=== PATIENT | female | born 1940 | race Hispanic/Latino ===

== ENCOUNTER → 2018-06-17 | Outpatient (CLI) | payer BC | LOC: MAMMO 09:38 | PROVIDERS: ATTEND Internal Medicine | DX: Z12.31 Encounter for screening mammogram for malignant neoplasm of breast (principal) | CPT/HCPCS: 77067 ==

== ENCOUNTER 2018-09-11 02:47 | Inpatient (IN) | payer MEDICARE ==
[~2018-09-11] VITALS: Ht 157.5 cm; Wt 79.1 kg
--- OUTSIDE RECORDS SUMMARY | 2018-09-11 02:51 | XMS REPORT | Summary of Care ---
Author Organization Unknown Address Unknown Phone Unavailable Encounter GRECIA Weaver(MONICA) [id number] Date(s): 09/03/14 - 09/03/14 [facility] [address] [place] [address]- Discharge Diagnosis: Fall Discharge Diagnosis: Multiple contusions Discharge Disposition: SERGEI Physician Attending: Pk Saucedo MD Vital Signs 1 2 3 Most recent to oldest [Reference Range]: 157.48 cm (09/03/14 9:51 AM) Height 98.1 DegF (09/03/14 9:51 AM) Temperature Oral [96.4-99.1 DegF] 104/57 mmHg (09/03/14 12:56 PM) 124/60 mmHg (09/03/14 11:00 AM) 150/74 mmHg *HI* (09/03/14 9:51 AM) Blood Pressure [90-140/60-90 mmHg] 15 BRMIN (09/03/14 11:00 AM) 20 BRMIN (09/03/14 9:51 AM) Respiratory Rate [14-20 BRMIN] 74 bpm (09/03/14 12:56 PM) 70 bpm (09/03/14 11:00 AM) 73 bpm (09/03/14 9:51 AM) Peripheral Pulse Rate [60-100 bpm] 85.909 kg (09/03/14 9:51 AM) Weight 34.64 m2 (09/03/14 9:51 AM) Body Mass Index Problem List Condition Effective Dates Status Health Status Informant Diabetes Resolved mellitus(Confirmed) High blood Resolved pressure(Confirmed) Allergies, Adverse Reactions, Alerts Substance Reaction Severity Status Food Eggs Active Vicodin Active Medications Flexeril 10 mg oral tablet 10 mg, PO, TID, PRN Muscle Spasm, # 30 tab, 0 Refill(s) Start Date: 09/03/14 Stop Date: 09/13/14 Status: Ordered morphine Sulfate 2 mg, Route: IVP, Drug form: INJ, ONCE, Dosing Weight 85.909, kg, Priority: STAT , Start date: 09/03/14 10:10:00, Stop date: 09/03/14 10:10:00 Start Date: 09/03/14 Stop Date: 09/03/14 Status: Completed Tylenol with Codeine #3 oral tablet 1 tab, PO, Q4H, PRN for pain, # 30 tab, 0 Refill(s) Start Date: 09/03/14 Status: Ordered Zofran 4 mg, Route: IVP, Drug form: INJ, ONCE, Dosing Weight 85.909, kg, Priority: STAT , Start date: 09/03/14 10:10:00, Stop date: 09/03/14 10:10:00 Start Date: 09/03/14 Stop Date: 09/03/14 Status: Completed Results No data available for this section Immunizations No data available for this section Procedures Procedure Date Related Diagnosis Body Site Bilateral tubal ligation Social History Social History Type Response Smoking Status Never smoker; Exposure to Tobacco Smoke None; Cigarette Smoking Last 365 Days No; Reg Smoking Cessation Counseling No Assessment and Plan No data available for this section
--- OUTSIDE RECORDS SUMMARY | 2018-09-11 02:51 | XMS REPORT | Summary of Care ---
Author Author [facility] Organization [facility] Address Unknown Phone Unavailable Encounter HQ Rhonda_yesenia(MONICA) [id number] Date(s): 07/17/16 - 07/17/16 [facility] [address] [place] [phone]- [phone] Discharge Disposition: Home or Self Care Attending Physician: Kyree Romeo MD Referring Physician: Kyree Romeo MD Vital Signs No data available for this section Problem List Condition Effective Dates Status Health Status Informant Diabetes Resolved mellitus(Confirmed) High blood Resolved pressure(Confirmed) Hypercholesteremia(C Resolved onfirmed) Neuropathy(Confirmed Active ) Allergies, Adverse Reactions, Alerts Substance Reaction Severity Status Food Eggs Active Vicodin Active Medications No data available for this section Results No data available for this section [...]
--- OUTSIDE RECORDS SUMMARY | 2018-09-11 02:51 | XMS REPORT | Summary of Care ---
Author Author [facility] Organization [facility] Address Unknown Phone Unavailable Encounter GRECIA Weaver(MONICA) [id number] Date(s): 07/09/16 - 07/09/16 [facility] [address] [place] [address]- Discharge Diagnosis: Closed traumatic nondisplaced fracture of proximal end of r ight tibia Discharge Disposition: Home or Self Care Attending Physician: Geoffrey Celis MD Vital Signs Most recent to 1 oldest [Reference Range]: Height 157.48 cm (07/09/16 4:18 PM) Temperature Oral 98.9 DegF [96.4-99.1 DegF] (07/09/16 4:18 PM) Blood Pressure 175/91 mmHg [90-140/60-90 mmHg] *HI* (07/09/16 4:18 PM) Respiratory Rate 16 BRMIN [14-20 BRMIN] (07/09/16 4:18 PM) Peripheral Pulse 86 bpm Rate [60-100 bpm] (07/09/16 4:18 PM) Weight 79.545 kg (07/09/16 4:18 PM) Body Mass Index 32.07 m2 (07/09/16 4:18 PM) Problem List Condition Effective Dates Status Health Status Informant Diabetes Resolved mellitus(Confirmed) High blood Resolved pressure(Confirmed) Hypercholesteremia(C Resolved onfirmed) Neuropathy(Confirmed Active ) Allergies, Adverse Reactions, Alerts Substance Reaction Severity Status Food Eggs Active Vicodin Active Medications morphine Sulfate 4 mg, Route: IVP, ONCE, Dosing Weight 79.545, kg, Priority: STAT, Start date: 17:49:00 SHELVING SUPERVISOR, Stop date: 07/09/16 17:49:00 SHELVING SUPERVISOR Start Date: 07/09/16 Stop Date: 07/09/16 Status: Completed morphine Sulfate 4 mg, Route: IVP, ONCE, Dosing Weight 79.545, kg, Priority: STAT, Start date: 16:30:00 SHELVING SUPERVISOR, Stop date: 07/09/16 16:30:00 SHELVING SUPERVISOR Start Date: 07/09/16 Stop Date: 07/09/16 Status: Completed morphine Sulfate 4 mg, Route: IVP, ONCE, Dosing Weight 79.545, kg, Priority: STAT, Start date: 19:57:00 SHELVING SUPERVISOR, Stop date: 07/09/16 19:57:00 SHELVING SUPERVISOR Start Date: 07/09/16 Stop Date: 07/09/16 Status: Completed tramadol 100 mg oral tablet, extended release 100 mg=1 tab, PO, Daily, # 30 tab, 0 Refill(s) Start Date: 07/09/16 Status: Ordered Tylenol with Codeine #3 oral tablet 1 - 2 tab, PO, Q4H, PRN Pain, X 4 day, # 36 tab, 0 Refill(s) Start Date: 07/09/16 Stop Date: 07/13/16 Status: Ordered WheelChair 1 ea, MISC, ONCALL, # 1 ea, 0 Refill(s) Start Date: 07/09/16 Status: Ordered Zofran 4 mg, Route: IVP, Drug form: INJ, ONCE, Dosing Weight 79.545, kg, Priority: STAT , Start date: 07/09/16 16:30:00 SHELVING SUPERVISOR, Stop date: 07/09/16 16:30:00 SHELVING SUPERVISOR Start Date: 07/09/16 Stop Date: 07/09/16 Status: Completed Results No data available for [...]
--- OUTSIDE RECORDS SUMMARY | 2018-09-11 02:51 | XMS REPORT | Continuity of Care Document ---
Author Author [facility] Organization Interface Address Unknown Phone Unavailable Problems Problem Status Onset Date Classification Date Reported Comments Source TIBIAL FX Active 10/07/2016 [facility] [place] GENERAL PAIN, VOMITING Active 10/05/2016 [facility] RIGHT TIBIAL PLATEAU FRACTURE Active 08/22/2016 [facility] RIGHT KNEE PAIN M25.561, DISPLACED BICON Active 07/14/2016 [facility] Discharge Diagnosis: Closed traumatic nondisplaced fracture of proximal end of right tibia 07/09/2016 07/12/2016 [facility] KNEE PAIN Active 07/09/2016 [facility] BREAST CANCERSELF REFERRED Active 03/28/2015 [facility] Discharge Diagnosis: Shortness of breath 01/16/2015 01/19/2015 [facility] Discharge Diagnosis: Weakness 01/16/2015 01/19/2015 [facility] Discharge Diagnosis: Vertigo 01/16/2015 01/19/2015 [facility] DIZZY Active 01/16/2015 [facility] Discharge Diagnosis: Accidental fall 12/20/2014 12/23/2014 [facility] Discharge Diagnosis: Dizziness 12/20/2014 12/23/2014 [facility] Discharge Diagnosis: Acute head injury 12/20/2014 12/23/2014 [facility] FALL, DIZZINESS Active 12/20/2014 [facility] Discharge Diagnosis: Fall 09/03/2014 09/05/2014 [facility] Discharge Diagnosis: Multiple contusions 09/03/2014 09/05/2014 [facility] FALL Active 09/03/2014 [facility] Diabetes mellitus Resolved Problem 03/01/2013 [facility] High blood pressure Resolved Problem 03/01/2013 [facility] Diabetes mellitus Resolved Problem 07/20/2016 [facility] High blood pressure Resolved Problem 07/20/2016 [facility] Hypercholesteremia Resolved Problem 07/20/2016 [facility] Diabetes mellitus Resolved Problem 11/16/2016 [facility] [place] Fracture Active Problem 11/16/2016 [facility] [place],[facility] JAMUL (<span ID="[id number]">Confirmed</span>) Resolved Problem 11/16/2016 [facility] High blood pressure Resolved Problem 11/16/2016 [facility] OAB (<span ID="[id number]">Confirmed</span>) Active Problem 11/16/2016 [facility] Hypercholesteremia Resolved Problem 11/16/2016 [facility] Cataract Active Problem 11/16/2016 [facility] Breast cancer in female<sup>1</sup> Resolved Problem 11/16/2016 left breast [facility] Neuropathy Active Problem 11/16/2016 [facility] Tremor of right hand. Active Problem 11/16/2016 [facility] TIA (<span ID="[id number]">Confirmed</span>) Resolved Problem 11/16/2016 [facility] Varicose vein of leg Active Problem 11/16/2016 [facility] Diabetes mellitus Resolved Problem 09/15/2016 [facility] High blood pressure Resolved Problem 09/15/2016 [facility] Hypercholesteremia Resolved Problem 09/15/2016 [facility] Neuropathy Active Problem 09/15/2016 [facility] M54.5 Active [facility] LOW BACK PAIN Active [facility] PAIN IN RIGHT KNEE Active [facility] DISP FX OF LATERAL CONDYLE OF RIGHT TIBI Active [facility] Medications Medication Details Route Status Patient Instructions Ordering Provider Order Date Source tramadol hydrochloride 50 MG Oral Tablet 50 mg=1 tab, PO, Q4H, PRN Pain, X 10 day, # 60 tab, 0 Refill(s) Active 09/12/2016 [facility] dextrose 10% in water 1,000 mL 1,000 mL, Rate: 75 ml/hr, Infuse over: 13.3 hr, Route: IV, Dosing Weight 73.636 kg, Total Volume: 1,000, Priority: STAT, Start date: 09/11/16 11:17:00 CDT, Duration: 30 day, Stop date: 10/11/16 11:16:00 CDT No Longer Active 09/11/2016 [facility] 24 HR tramadol hydrochloride 100 MG Extended Release Tablet 100 mg=1 tab, PO, Daily, # 30 tab, 0 Refill(s) Active 09/11/2016 [facility] Aspirin 325 MG Enteric Coated Tablet 325 mg=1 tab, PO, Q12H, # 30 tab, 0 Refill(s) Active 09/11/2016 [facility] remove patch 1 patch, Route: TOP, Bedtime, Drug form: ERFILM, Start date: 09/10/16 21:00:00 CDT, Duration: 30 day, Stop date: 10/09/16 21:00:00 CDTNotes: Remove patch 12 hours after application each day. No Longer Active 09/11/2016 [facility] Mupirocin 0.02 MG/MG Nasal Ointment [Bactroban] 1 appl, Route: NASAL, Q12H, Drug form: OINT, Start date: 09/10/16 9:00:00 CDT, Duration: 5 day, Stop date: 09/14/16 21:00:00 CDT, MRSA decolonization No Longer Active 09/10/2016 [facility] Lisinopril 20 mg, 1 tab, Route: PO, Drug form: TAB, Daily, Dosing Weight 74.545, kg, Start date: 09/10/16 9:00:00 CDT, Duration: 30 day, Stop date: 10/09/16 9:00:00 CDTNotes: (Same as: Prinivil, Zestril) No Longer Active 09/10/2016 [facility] vancomycin 1.5 gm, 250 mL, Route: IVPB, Drug form: INJ, [id number], Start date: 09/10/16 0:00:00 CDT, Duration: 2 doses or times, Stop date: 09/10/16 12:00:00 CDTNotes: TIME CRITICAL MEDICATION Same as: Vancocin-NS (premixed) Infusion rate 2001 mg: infuse over 2.5 hours Inactive 09/10/2016 [facility] Aspirin 325 MG Enteric Coated Tablet 325 mg, 1 tab, Route: PO, Drug form: ECTAB, Q12H, Dosing Weight 74.545, kg, Start date: 09/09/16 21:00:00 CDT, Duration: 30 day, Stop date: 10/09/16 9:00:00 CDTNotes: (Do Not Crush) Do not crush or chew. No Longer Active 09/10/2016 [facility] Vancomycin 1,000 mg, Route: IVPB, Drug form: INJ, Q12H, Dosing Weight 74.545, kg, Time Critical Medication, Start date: 09/09/16 21:00:00 CDT, Duration: 2 doses or times, Stop date: 09/10/16 9:00:00 CDT, Pharmacy to adjust dose for renal function Inactive 09/10/2016 [facility] Celebrex 200 mg, 1 cap, Route: PO, Drug form: CAP, Q12H, Dosing Weight 74.545, kg, Start date: 09/09/16 21:00:00 CDT, Stop date: 10/09/16 9:00:00 CDTNotes: NSAID. Please check indication. Not for seizure. ([facility] As: CeleBREX) No Longer Active 09/10/2016 [facility] insulin aspart 5 unit, 0.05 mL, Route: SUB-Q, Drug form: SOLN, Before Meals & Bedtime, PRN Blood Glucose Results, Start date: 09/09/16 17:03:00 CDT, Duration: 30 day, Stop date: 10/09/16 17:02:00 CDTNotes: Roll in palms of hands gently; Do not shake vigorously. (Same as: NovoLOG) "single patient use only" WASTE: F/P - Black; E - Municipal Trash Bin Stable for 28 days at room temperature. Expires in days from Date No Longer Active 09/09/2016 [facility] insulin aspart 6 unit, 0.06 mL, Route: SUB-Q, Drug form: SOLN, Before Meals & Bedtime, PRN Blood Glucose Results, Start date: 09/09/16 17:02:00 CDT, Duration: 30 day, Stop date: 10/09/16 17:01:00 CDTNotes: Roll in palms of hands gently; Do not shake vigorously. (Same as: NovoLOG) "single patient use only" WASTE: F/P - Black; E - Municipal Trash Bin Stable for 28 days at room temperature. Expires in days from Date No Longer Active 09/09/2016 [facility] glucagon 1 mg, Route: IV, Drug form: PDR/INJ, PRN, PRN Blood Glucose Results, Start date: 09/09/16 17:01:00 CDT, Duration: 30 day, Stop date: 10/09/16 17:00:00 CDT No Longer Active 09/09/2016 [facility] Docusate 100 mg, 1 cap, Route: PO, Drug form: CAP, BID, Dosing Weight 74.545, kg, Start date: 09/09/16 17:00:00 CDT, Duration: 30 day, Stop date: 10/09/16 9:00:00 CDTNotes: (Same as: Colace) (Do Not Crush) No Longer Active 09/09/2016 [facility] Dextrose 50% in Water IV 12.5 gm, 25 mL, Route: IVP, Drug Form: INJ, PRN, PRN Blood Glucose Results, Start date: 09/09/16 17:00:00 CDT, Duration: 30 day, Stop date: 10/09/16 16:59:00 CDT No Longer Active 09/09/2016 [facility] Metformin hydrochloride 1000 MG Oral Tablet 1,000 mg, 2 tab, Route: PO, Drug form: TAB, BID-Meals, Dosing Weight 74.545, kg, Start date: 09/09/16 17:00:00 CDT, Duration: 30 day, Stop date: 10/09/16 8:00:00 CDTNotes: (Same as: Glucophage) Take with meal No Longer Active 09/09/2016 [facility] glimepiride 4 mg, 1 tab, Route: PO, Drug form: TAB, BID, Dosing Weight 74.545, kg, Start date: 09/09/16 17:00:00 CDT, Duration: 30 day, Stop date: 10/09/16 9:00:00 CDTNotes: Non-Formulary (Same as: Amaryl) No Longer Active 09/09/2016 [facility] Dextrose 50% in Water IV 50 mL, Route: IVP, Start date: 09/09/16 16:59:00 CDT, Duration: 30 day, Stop date: 10/09/16 16:58:00 CDT, PRN Blood Glucose Results No Longer Active 09/09/2016 [facility] insulin aspart 8 unit, 0.08 mL, Route: SUB-Q, Drug form: SOLN, Before Meals & Bedtime, PRN Blood Glucose Results, Start date: 09/09/16 16:59:00 CDT, Duration: 30 day, Stop date: 10/09/16 16:58:00 CDTNotes: Roll in palms of hands gently; Do not shake vigorously. (Same as: NovoLOG) "single patient use only" WASTE: F/P - Black; E - Municipal Trash Bin Stable for 28 days at room temperature. Expires in days from Date No Longer Active 09/09/2016 [facility] Sodium Chloride 0.9% IV 250 mL, Route: IVPB, Start date: 09/09/16 15:13:00 CDT, Duration: 30 day, Stop date: 10/09/16 15:12:00 CDT, PRN Line Flush No Longer Active 09/09/2016 [facility] BD Normal Saline Flush 10 mL, Route: IVP, Drug Form: INJ, PRN, PRN Line Flush, Start date: 09/09/16 15:13:00 CDT, Duration: 30 day, Stop date: 10/09/16 15:12:00 CDTNotes: (Same as: BD Posiflush) No Longer Active 09/09/2016 [facility] Tramadol 100 mg, 2 tab, Route: PO, Drug form: TAB, Q6Hnow, Dosing Weight 74.545, kg, Start date: 09/09/16 15:00:00 CDT, Duration: 30 day, Stop date: 10/09/16 9:00:00 CDTNotes: Not to exceed 400mg/day. (Same As: Ultram) No Longer Active 09/09/2016 [facility] gabapentin 300 mg, 1 cap, Route: PO, Drug form: CAP, Q8Hnow, Dosing Weight 74.545, kg, Start date: 09/09/16 15:00:00 CDT, Duration: 30 day, Stop date: 10/09/16 7:00:00 CDTNotes: (Same as: Neurontin) Inactive 09/09/2016 [facility] celecoxib 200 mg, 1 cap, Route: PO, Drug form: CAP, [id number], Dosing Weight 74.545, kg, Start date: 09/09/16 15:00:00 CDT, Duration: 30 day, Stop date: 10/09/16 3:00:00 CDTNotes: NSAID. Please check indication. Not for seizure. (Same As: CeleBREX) Inactive 09/09/2016 [facility] Acetaminophen 1,000 mg, 2 tab, Route: PO, Drug form: TAB, Q6Hnow, Dosing Weight 74.545, kg, Start date: 09/09/16 15:00:00 CDT, Duration: 30 day, Stop date: 10/09/16 9:00:00 CDTNotes: Max acetaminophen 4000 mg/day (4 gm/day). (Same as: Tylenol Extra Strength) No Longer Active 09/09/2016 [facility] Lidocaine Hydrochloride 0.05 MG/MG Transdermal Patch [Lidoderm] 1 patch, Route: TOP, Daily, Drug form: FILM, Start date: 09/09/16 15:00:00 CDT, Duration: 30 day, Stop date: 10/09/16 9:00:00 CDTNotes: Apply only once for up to 12 hours in a 24-hour period (12 hours on and 12 hours off). (Same as: Lidoderm) "Remove old patch before application of new patch" No Longer Active 09/09/2016 [facility] Oxycodone Hydrochloride 5 MG Oral Tablet 10 mg, 2 tab, Route: PO, Drug form: TAB, Q4H, Dosing Weight 74.545, kg, PRN Pain Score 7-10, Start date: 09/09/16 14:33:00 CDT, Duration: 30 day, Stop date: 10/09/16 14:32:00 CDTNotes: (Same as: Roxicodone) No Longer Active 09/09/2016 [facility] Diphenhydramine 12.5 mg, 5 mL, Route: PO, Drug form: LIQ, Q6H, Dosing Weight 74.545, kg, PRN Itching, Start date: 09/09/16 14:33:00 CDT, Duration: 30 day, Stop date: 10/09/16 14:32:00 CDTNotes: (Same as: Benadryl) No Longer Active 09/09/2016 [facility] Trazodone 50 mg, 1 tab, Route: PO, Drug form: TAB, Bedtime, Dosing Weight 74.545, kg, PRN Insomnia, Start date: 09/09/16 14:33:00 CDT, Duration: 30 day, Stop date: 10/09/16 14:32:00 CDTNotes: (Same As: Desyrel) No Longer Active 09/09/2016 [facility] Bisacodyl 10 mg, 1 supp, Route: AL, Drug form: SUPP, Daily, Dosing Weight 74.545, kg, PRN Constipation, Start date: 09/09/16 14:33:00 CDT, Duration: 30 day, Stop date: 10/09/16 14:32:00 CDTNotes: (Same As: Dulcolax, Bisco-Lax) No Longer Active 09/09/2016 [facility] Methocarbamol 1,000 mg, 2 tab, Route: PO, Drug form: TAB, Q8H, Dosing Weight 74.545, kg, PRN Muscle Spasms, Start date: 09/09/16 14:33:00 CDT, Duration: 30 day, Stop date: 10/09/16 14:32:00 CDTNotes: (Same as:Robaxin) No Longer Active 09/09/2016 [facility] Ondansetron 4 mg, 2 mL, Route: IVP, Drug form: INJ, Q8H, Dosing Weight 74.545, kg, PRN Nausea & Vomiting, Start date: 09/09/16 14:33:00 CDT, Duration: 30 day, Stop date: 10/09/16 14:32:00 CDTNotes: (Same as: Zofran) MEDICATION WASTE Product Size: 4 mg Product Wasted: ___ mg No Longer Active 09/09/2016 [facility] Morphine 2 mg, 1 mL, Route: IVP, Drug form: INJ, Q4H, Dosing Weight 74.545, kg, PRN Pain Score 7-10, Start date: 09/09/16 14:33:00 CDT, Duration: 30 day, Stop date: 10/09/16 14:32:00 CDTNotes: (Same as:MORPhine Sulfate) No Longer Active 09/09/2016 [facility] Al hydroxide/Mg hydroxide/simethicone 200 mg-200 mg-20 mg/5 mL oral suspension 30 mL, Route: PO, Drug Form: SUSP, Dosing Weight 74.545, kg, Q4H, PRN Indigestion, Start date: 09/09/16 14:33:00 CDT, Duration: 30 day, Stop date: 10/09/16 14:32:00 CDTNotes: (aluminum hydroxide-magnesium hyd- simethicone 170-931-85sv/5ml YANA) (Same as: Maalox Plus Extra Strength) No Longer Active 09/09/2016 [facility] sodium chloride 0.45% 1000 ml INJ 1,000 mL 1,000 mL, Rate: 75 ml/hr, Infuse over: 13.3 hr, Route: IV, Dosing Weight 74.545 kg, Total Volume: 1,000, Start date: 09/09/16 14:33:00 CDT, Duration: 30 day, Stop date: 10/09/16 14:32:00 CDT No Longer Active 09/09/2016 [facility] fentaNYL (ANES) Route: IV, Drug form: INJ, ONCE, Stop date: 09/09/16 13:03:00 CDT Inactive 09/09/2016 [facility] phenylephrine (ANES) Route: IV, Drug form: INJ, ONCE, Stop date: 09/09/16 13:03:00 CDT Inactive 09/09/2016 [facility] gabapentin 300 MG Oral Capsule 300 mg, 1 cap, Route: PO, Drug form: CAP, Q8H, Dosing Weight 74.545, kg, Start date: 09/09/16 13:00:00 CDT, Duration: 30 day, Stop date: 10/09/16 8:00:00 CDTNotes: (Same as: Neurontin) No Longer Active 09/09/2016 [facility] ondansetron (ANES) Route: IV, Drug form: INJ, ONCE, Stop date: 09/09/16 12:43:00 CDT Inactive 09/09/2016 [facility] propofol (ANES) Route: IV, Drug form: INJ, ONCE, Stop date: 09/09/16 12:33:00 CDT Inactive 09/09/2016 [facility] gabapentin 100 mg, 1 cap, Route: PO, Drug form: CAP, Q8Hnow, Dosing Weight 74.545, kg, Start date: 09/09/16 12:00:00 CDT, Duration: 30 day, Stop date: 10/09/16 4:00:00 CDTNotes: (Same as: Neurontin) Inactive 09/09/2016 [facility] celecoxib 200 mg, 1 cap, Route: PO, Drug form: CAP, [id number], Dosing Weight 74.545, kg, Start date: 09/09/16 12:00:00 CDT, Duration: 30 day, Stop date: 10/09/16 0:00:00 CDTNotes: NSAID. Please check indication. Not for seizure. (Same As: CeleBREX) Inactive 09/09/2016 [facility] Acetaminophen 1,000 mg, 100 mL, Route: IVPB, Drug form: INJ, Q6Hnow, Dosing Weight 74.545, kg, Start date: 09/09/16 12:00:00 CDT, Duration: 30 day, Stop date: 10/09/16 6:00:00 CDTNotes: Infuse over 15 minutes Do not exceed 4gm/day of acetaminophen MEDICATION WASTE Product Size: 1000 mg Product Wasted: ___ mg Inactive 09/09/2016 [facility] LR 1000 mL INJ (ANES) Route: IV, Total Volume: 1,000, Start date: 09/09/16 11:55:00 CDT, Stop date: 09/09/16 12:55:00 CDT Inactive 09/09/2016 [facility] vancomycin 1.5 gm, 250 mL, Route: IVPB, Drug form: INJ, ONCE, Start date: 09/09/16 11:42:00 CDT, Stop date: 09/09/16 11:42:00 CDTNotes: TIME CRITICAL MEDICATION Same as: Vancocin-NS (premixed) Infusion rate 2001 mg: infuse over 2.5 hours No Longer Active 09/09/2016 [facility] Flumazenil 0.2 mg, 2 mL, Route: IVP, Drug form: INJ, PRN, Dosing Weight 74.545, kg, PRN Benzodiazepine Reversal, Initial dose, Start date: 09/09/16 11:21:00 CDT, Duration: 30 day, Stop date: 10/09/16 11:20:00 C DTNotes: (Same as: Romazicon) Inactive 09/09/2016 [facility] Ondansetron 4 mg, 2 mL, Route: IVP, Drug form: INJ, ONCE, Dosing Weight 74.545, kg, PRN Nausea & Vomiting, Start date: 09/09/16 11:21:00 CDTNotes: (Same as: Zofran) MEDICATION WASTE Product Size: 4 mg Product Wasted: ___ mg Inactive 09/09/2016 [facility] Naloxone 0.4 mg, 1 mL, Route: IVP, Drug form: INJ, Q2MIN, Dosing Weight 74.545, kg, PRN Narcotic Reversal, Start date: 09/09/16 11:21:00 CDT, Duration: 8 doses or times, Stop date: Limited # of timesNotes: Same as Narcan Inactive 09/09/2016 [facility] Fentanyl 25 microgram, 0.5 mL, Route: IVP, Drug form: INJ, Q5Min, Dosing Weight 74.545, kg, PRN Pain Score 4-6, Priority: Routine, Start date: 09/09/16 11:21:00 CDT, Duration: 4 doses or times, Stop date: Limited # of timesNotes: (Same as: Sublimaze) Preservative free. Inactive 09/09/2016 [facility] Morphine 2 mg, 1 mL, Route: IVP, Drug form: INJ, Q5Min, Dosing Weight 74.545, kg, PRN Pain Score 4-6, Start date: 09/09/16 11:21:00 CDT, Duration: 5 doses or times, Stop date: 09/09/16 23:00:00 CDTNotes: (Same as:MORPhine Sulfate) Inactive 09/09/2016 [facility] Calcium Chloride 0.0014 MEQ/ML / Potassium Chloride 0.004 MEQ/ML / Sodium Chloride 0.103 MEQ/ML / Sodium Lactate 0.028 MEQ/ML Injectable Solution 1,000 mL, Rate: 125 ml/hr, Infuse over: 8 hr, Route: IV, Dosing Weight 74.545 kg, Total Volume: 1,000, Start date: 09/09/16 11:21:00 CDT, Duration: 30 day, Stop date: 10/09/16 11:20:00 CDT Inactive 09/09/2016 [facility] Ondansetron 4 mg, 2 mL, Route: IVP, Drug form: INJ, Q8H, Dosing Weight 74.545, kg, PRN Nausea & Vomiting, Start date: 09/09/16 11:20:00 CDT, Duration: 30 day, Stop date: 10/09/16 11:19:00 CDTNotes: (Same as: Speedy) MEDICATION WASTE Product Size: 4 mg Product Wasted: ___ mg Inactive 09/09/2016 [facility] Morphine 2 mg, 1 mL, Route: IVP, Drug form: INJ, Q4H, Dosing Weight 74.545, kg, PRN Pain Score 7-10, Start date: 09/09/16 11:20:00 CDT, Duration: 30 day, Stop date: 10/09/16 11:19:00 CDTNotes: (Same as:MORPhine Sulfate) Inactive 09/09/2016 [facility] Oxycodone Hydrochloride 5 MG Oral Tablet 5 mg, 1 tab, Route: PO, Drug form: TAB, Q4H, Dosing Weight 74.545, kg, PRN Pain Score 4-6, Start date: 09/09/16 11:20:00 CDT, Duration: 30 day, Stop date: 10/09/16 11:19:00 CDTNotes: (Same as: Roxicodone) Inactive 09/09/2016 [facility] ropivacaine Route: NERVE BLOCK, Continuous Rate: 10, ml/hr, Dosing Site: Femoral Side: Right, TOE STAPLER dose 5 mL, TOE STAPLER dose lockout: 30 minutes, 1 Hour limit: 20 mL, Clinician Bolus: 5 mL, 200, mL, Start date: 09/09/16 1 1:20:00 CDT, Duration: 30, day, Drug Form: INJ, C...Notes: Same as: Naropin No Longer Active 09/09/2016 [facility] Calcium Chloride 0.0014 MEQ/ML / Potassium Chloride 0.004 MEQ/ML / Sodium Chloride 0.103 MEQ/ML / Sodium Lactate 0.028 MEQ/ML Injectable Solution 1,000 mL, Rate: 25 ml/hr, Infuse over: 40 hr, Route: IV, Dosing Weight 74.545 kg, Total Volume: 1,000, Start date: 09/09/16 11:20:00 CDT, Duration: 30 day, Stop date: 10/09/16 11:19:00 CDT Inactive 09/09/2016 [facility] Celebrex 400 mg, Route: PO, Drug form: CAP, ONCE, Dosing Weight 74.545, kg, Start date: 09/09/16 11:18:00 CDT, Stop date: 09/09/16 11:18:00 CDT Inactive 09/09/2016 [facility] Acetaminophen 325 MG / Hydrocodone Bitartrate 5 MG Oral Tablet [[place] 5/325] 1 tab, PO, Q4-6H, PRN, # 30 tab, 0 Refill(s) No Longer Active 09/02/2016 [facility] Calcium Carbonate 1500 MG / Cholecalciferol 800 UNT Oral Tablet [Caltrate Plus D 600/800] 1 tab, PO, BID, 0 Refill(s) Active 09/01/2016 [facility] Trazodone Hydrochloride 50 MG Oral Tablet 50 mg=1 tab, PO, Bedtime, # 30 tab, 1 Refill(s) Active 09/01/2016 [facility] glimepiride 4 mg oral tablet 4 mg=1 tab, PO, BID, 0 Refill(s) No Longer Active 09/01/2016 [facility] lisinopril 20 mg oral tablet 20 mg=1 tab, PO, Daily, # 30 tab, 0 Refill(s) Active 09/01/2016 [facility] Metformin hydrochloride 1000 MG Oral Tablet 1,000 mg=1 tab, PO, BID-Meals, # 30 tab, 0 Refill(s) Active 09/01/2016 [facility] 24 HR tramadol hydrochloride 100 MG Extended Release Tablet 100 mg=1 tab, PO, Daily, # 30 tab, 0 Refill(s) Active 07/10/2016 [facility] Acetaminophen 300 MG / Codeine Phosphate 30 MG Oral Tablet [Tylenol with Codeine #3] 1 - 2 tab, PO, Q4H, PRN Pain, X 4 day, # 36 tab, 0 Refill(s) Active 07/10/2016 [facility] WheelChair 1 ea, MISC, ONCALL, # 1 ea, 0 Refill(s) Active 07/10/2016 [facility] Morphine 4 mg, Route: IVP, ONCE, Dosing Weight 79.545, kg, Priority: STAT, Start date: 07/09/16 19:57:00 VARNISH MAKER, Stop date: 07/09/16 19:57:00 VARNISH MAKER Inactive 07/10/2016 [facility] Morphine 4 mg, Route: IVP, ONCE, Dosing Weight 79.545, kg, Priority: STAT, Start date: 07/09/16 17:49:00 VARNISH MAKER, Stop date: 07/09/16 17:49:00 VARNISH MAKER Inactive 07/09/2016 [facility] Zofran 4 mg, Route: IVP, Drug form: INJ, ONCE, Dosing Weight 79.545, kg, Priority: STAT, Start date: 07/09/16 16:30:00 VARNISH MAKER, Stop date: 07/09/16 16:30:00 VARNISH MAKER Inactive 07/09/2016 [facility] Morphine 4 mg, Route: IVP, ONCE, Dosing Weight 79.545, kg, Priority: STAT, Start date: 07/09/16 16:30:00 VARNISH MAKER, Stop date: 07/09/16 16:30:00 VARNISH MAKER Inactive 07/09/2016 [facility] meclizine 25 mg oral tablet 25 mg=1 tab, PO, TID, PRN Other- See Comments, X 10 day, # 30 tab, 0 Refill(s) Active 01/16/2015 [facility] Meclizine 25 mg, Route: PO, Drug form: TAB, ONCE, Dosing Weight 83.636, kg, Priority: STAT, Start date: 01/16/15 14:29:00, Stop date: 01/16/15 14:29:00 Inactive 01/16/2015 [facility] Saline Flush 0.9% 10 mL, Route: IVP, Drug Form: INJ, Dosing Weight 83.636, kg, PRN, PRN Line Flush, Start date: 01/16/15 14:29:00, Duration: 30 day, Stop date: 02/15/15 14:28:00Notes: (Same as: BD Posiflush) No Longer Active 01/16/2015 [facility] Ibuprofen 800 MG Oral Tablet [Motrin] 800 mg=1 tab, PO, Q8H, PRN Pain, Take with food, # 30 tab, 0 Refill(s)Special Instructions: Take with food Active 12/21/2014 [facility] Cyclobenzaprine hydrochloride 10 MG Oral Tablet [Flexeril] 10 mg, PO, TID, PRN Muscle Spasm, # 30 tab, 0 Refill(s) Active 09/03/2014 [facility] Acetaminophen 300 MG / Codeine Phosphate 30 MG Oral Tablet [Tylenol with Codeine #3] 1 tab, PO, Q4H, PRN for pain, # 30 tab, 0 Refill(s) Active 09/03/2014 [facility] Morphine 2 mg, Route: IVP, Drug form: INJ, ONCE, Dosing Weight 85.909, kg, Priority: STAT, Start date: 09/03/14 10:10:00, Stop date: 09/03/14 10:10:00 Inactive 09/03/2014 [facility] Zofran 4 mg, Route: IVP, Drug form: INJ, ONCE, Dosing Weight 85.909, kg, Priority: STAT, Start date: 09/03/14 10:10:00, Stop date: 09/03/14 10:10:00 Inactive 09/03/2014 [facility] Sodium Chloride 0.9% IV 1,000 mL 1,000 mL, Rate: 75 ml/hr, Infuse over: 13.3 hr, Route: IV, Dosing Weight 79.091 kg, Total Volume: 1,000, Priority: STAT, Start date: 02/27/13 10:32:00, Duration: 1 doses or times, Stop date: 02/27/13 23:49:00 IV No Longer Active [facility] 02/27/2013 [facility] acetaminophen 650 mg, Route: PO, Drug form: TAB, ONCE, Dosing Weight 79.091, kg, Priority: STAT, Start date: 02/27/13 10:32:00, Stop date: 02/27/13 10:32:00 PO No Longer Active [place] 02/27/2013 [facility] Allergies, Adverse Reactions, Alerts Substance Category Reaction Severity Reaction type Status Date Reported Comments Source Food Eggs Assertion Drug allergy Active [facility] Vicodin Assertion Drug allergy Active [facility] Immunizations Immunization Date Given Site Status Last Updated Comments Source Results Order Name Results Value Reference Range Date Interpretation Comments Source Abdomen acute series w chest 1 view DX Abdomen acute series w chest 1 view DX EXAM: XR ABDOMEN 2 VIEWS EXAM: CHEST 1 VIEW DATE: 10/06/2016 2:20 AM CDT INDICATION: Nausea ADDITIONAL INFORMATION: None. COMPARISON: None. TECHNIQUE: Upright and supine abdominal radiographs, and a single frontal view of the chest. FINDINGS: Chest: Mildly enlarged cardiac silhouette and prominent mediastinum. Low lung volume. No focal consolidation, significant pleural effusion or pneumothorax. Postoperative right shoulder hemiarthroplasty is present. Abdomen: Nonspecific bowel gas pattern is present. No definite free air. Some stool within the right colon. Severe lower lumbar spondylosis is present. SL: [id number] 10/06/2016 - - Read by: Don Snyder MD Dictated Date/time: 10/06/16 02:36 Electronically Signed by: Don Snyder MD 10/06/16 02:37 FINAL REPORT [facility] CHEM PANEL Bili Total 0.5 mg/dL 0.2 - 1.3 09/11/2016 [facility] CHEM PANEL eGFR 64 mL/min/1.73m2 09/11/2016 Result Comment: The eGFR is calculated using the CKD-EPI formula. In most young, healthy individuals the eGFR will be >90 mL/min/1.73m2. The eGFR declines with age. An eGFR of 60-89 may be normal in some populations, particularly the elderly, for whom the CKD-EPI formula has not been extensively validated. Use of the eGFR is not recommended in the following populations: Individuals with unstable creatinine concentrations, including patients and those with serious co-morbid conditions. Patients with extremes in muscle mass or diet. The data above are obtained from the National Kidney Disease Education Program (NKDEP) which additionally recommends that when the eGFR is used in patients with extremes of body mass index for purposes of drug dosing, the eGFR should be multiplied by the estimated BMI. [facility] CHEM PANEL AST 23 unit/L 0 - 37 09/11/2016 [facility] CHEM PANEL ALT 22 unit/L 0 - 65 09/11/2016 [facility] CHEM PANEL Alk Phos 93 unit/L 39 - 136 09/11/2016 [facility] CHEM PANEL B/C Ratio 26 6 - 25 09/11/2016 [facility] CHEM PANEL Calcium Lvl 8.0 mg/dL 8.5 - 10.5 09/11/2016 [facility] CHEM PANEL A/G Ratio 0.9 0.7 - 1.6 09/11/2016 [facility] CHEM PANEL AGAP 14.2 meq/L 10.0 - 20.0 09/11/2016 [facility] CHEM PANEL CO2 23 meq/L 24 - 32 09/11/2016 [facility] CHEM PANEL Total Protein 6.1 g/dL 6.4 - 8.4 09/11/2016 [facility] CHEM PANEL Albumin Lvl 2.9 g/dL 3.5 - 5.0 09/11/2016 [facility] CHEM PANEL Globulin 3.2 g/dL 2.7 - 4.2 09/11/2016 [facility] CHEM PANEL Sodium Lvl 135 meq/L 135 - 145 09/11/2016 [facility] CHEM PANEL Potassium Lvl 4.2 meq/L 3.5 - 5.1 09/11/2016 [facility] CHEM PANEL Chloride Lvl 102 meq/L 95 - 109 09/11/2016 [facility] CHEM PANEL Creatinine Lvl 0.90 mg/dL 0.50 - 1.40 09/11/2016 [facility] CHEM PANEL Glucose Lvl 71 mg/dL 70 - 99 09/11/2016 [facility] CHEM PANEL BUN 23 mg/dL 7 - 22 09/11/2016 [facility] CHEM PANEL A/G Ratio 1.0 0.7 - 1.6 09/11/2016 [facility] CHEM PANEL Globulin 3.1 g/dL 2.7 - 4.2 09/11/2016 [facility] CHEM PANEL Bili Direct 0.2 mg/dL 0.0 - 0.3 09/11/2016 [facility] CHEM PANEL Bili Total 0.5 mg/dL 0.2 - 1.3 09/11/2016 [facility] CHEM PANEL Alk Phos 95 unit/L 39 - 136 09/11/2016 [facility] CHEM PANEL AST 27 unit/L 0 - 37 09/11/2016 [facility] CHEM PANEL Bili Indirect 0.3 mg/dL 0.0 - 1.0 09/11/2016 [facility] CHEM PANEL ALT 22 unit/L 0 - 65 09/11/2016 [facility] CHEM PANEL Albumin Lvl 3.1 g/dL 3.5 - 5.0 09/11/2016 [facility] CHEM PANEL Total Protein 6.2 g/dL 6.4 - 8.4 09/11/2016 [facility] ENDOCRINOLOGY Insulin Lvl 78.6 uIU/mL 09/11/2016 [facility] HEMATOLOGY Eosinophils 0.8 % 0.0 - 4.0 09/11/2016 [facility] HEMATOLOGY Monocytes 6.8 % 2.0 - 12.0 09/11/2016 [facility] HEMATOLOGY Eosinophils # 0.1 K/CMM 0.0 - 0.5 09/11/2016 [facility] HEMATOLOGY Monocytes # 0.9 K/CMM 0.0 - 0.8 09/11/2016 [facility] Basophils 0.1 % 0.0 - 1.0 09/11/2016 [facility] Basophils # 0.0 K/CMM 0.0 - 0.2 09/11/2016 [facility] Lymphocytes # 1.1 K/CMM 1.0 - 5.5 09/11/2016 [facility] Segs-Bands # 10.5 K/CMM 1.5 - 8.1 09/11/2016 [facility] Lymphocytes 8.8 % 20.0 - 40.0 09/11/2016 [facility] Segs 83.5 % 45.0 - 75.0 09/11/2016 [facility] MPV 8.1 fL 7.4 - 10.4 09/11/2016 [facility] MCHC 32.8 g/dL 32.0 - 36.0 09/11/2016 [facility] RDW 12.4 % 11.5 - 14.5 09/11/2016 [facility] Platelet 160 K/CMM 133 - 450 09/11/2016 [facility] MCV 97.0 fL 80.0 - 98.0 09/11/2016 [facility] MCH 31.9 pg 27.0 - 31.0 09/11/2016 [facility] Hgb 10.3 g/dL 12.0 - 16.0 09/11/2016 [facility] Hct 31.4 % 36.0 - 48.0 09/11/2016 [facility] WBC 12.5 K/CMM 3.7 - 10.4 09/11/2016 [facility] RBC 3.24 M/CMM 4.20 - 5.40 09/11/2016 [facility] SPECIAL CHEMISTRY Hgb A1C 8.0 % <=5.6 % 09/11/2016 [facility] CHEM PANEL Glucose Lvl 37 mg/dL 70 - 99 09/11/2016 Result Comment: Critical Result(s) called to Lito Carr at 09/11/2016 06:53 by AP. Read back OK. [facility] Platelet 155 K/CMM 133 - 450 09/11/2016 [facility] Hgb 9.9 g/dL 12.0 - 16.0 09/11/2016 [facility] HEMATOLOGY Hct 29.7 % 36.0 - 48.0 09/11/2016 [facility] Knee 1-2 Views unilateral DX Knee 1-2 Views unilateral DX Knee 1-2 Views unilateral DX CLINICAL HISTORY: Arthritis FINDINGS/IMPRESSION: 2 views of the right knee are submitted for review. Postoperative changes related to knee arthroplasty are evident. Alignment is anatomic. There is no evidence for apache bone fractures. There is edema and air in the surrounding soft tissues consistent with recent surgery. Surgical brody are noted anteriorly. SL: OSCAR 09/10/2016 - - Read by: Faustino Espinosa MD Dictated Date/time: 09/10/16 23:36 Electronically Signed by: Faustino Espinosa MD 09/10/16 23:37 FINAL REPORT [facility] CHEM PANEL Calcium Lvl 8.0 mg/dL 8.5 - 10.5 09/10/2016 [facility] CHEM PANEL eGFR 64 mL/min/1.73m2 09/10/2016 Result Comment: The eGFR is calculated using the CKD-EPI formula. In most young, healthy individuals the eGFR will be >90 mL/min/1.73m2. The eGFR declines with age. An eGFR of 60-89 may be normal in some populations, particularly the elderly, for whom the CKD-EPI formula has not been extensively validated. Use of the eGFR is not recommended in the following populations: Individuals with unstable creatinine concentrations, including patients and those with serious co-morbid conditions. Patients with extremes in muscle mass or diet. The data above are obtained from the National Kidney Disease Education Program (NKDEP) which additionally recommends that when the eGFR is used in patients with extremes of body mass index for purposes of drug dosing, the eGFR should be multiplied by the estimated BMI. [facility] CHEM PANEL Chloride Lvl 104 meq/L 95 - 109 09/10/2016 [facility] CHEM PANEL CO2 25 meq/L 24 - 32 09/10/2016 [facility] CHEM PANEL Potassium Lvl 3.9 meq/L 3.5 - 5.1 09/10/2016 [facility] CHEM PANEL Creatinine Lvl 0.90 mg/dL 0.50 - 1.40 09/10/2016 [facility] CHEM PANEL Sodium Lvl 140 meq/L 135 - 145 09/10/2016 [facility] CHEM PANEL AGAP 14.9 meq/L 10.0 - 20.0 09/10/2016 [facility] CHEM PANEL BUN 20 mg/dL 7 - 22 09/10/2016 [facility] CHEM PANEL Glucose Lvl 39 mg/dL 70 - 99 09/10/2016 Result Comment: Critical Result(s) called to Lito Carr at 09/10/2016 09:00 by AP. Read back OK. [facility] Hgb 10.9 g/dL 12.0 - 16.0 09/10/2016 [facility] Hct 31.3 % 36.0 - 48.0 09/10/2016 [facility] BLOOD BANK RESULTS Antibody Scrn Positive 1 (09/09/16 11:12 AM) 09/09/2016 Result Comment: 09/09/2016 12:15 [id number] "Significant Findings of POS ABSC_ called to HARSHA_ at 09/09/2016 12:15_ by GT_. Read Back OK" [facility] BLOOD BANK RESULTS ABO/Rh O POS 09/09/2016 [facility] BLOOD BANK RESULTS Antigen DAVI Int K neg 09/09/2016 [facility] BLOOD BANK RESULTS AB Int Anti- K 09/09/2016 [facility] POC Hematocrit 38.0 % 36.0 - 48.0 09/09/2016 [facility] POC Hemoglobin 12.9 g/dL 12.0 - 16.0 09/09/2016 [facility] POC Glucose 148 mg/dL 70 - 99 09/09/2016 [facility] POC BUN 16 mg/dL 7 - 22 09/09/2016 [facility] POC Sodium 141 meq/L 135 - 145 09/09/2016 [facility] POC Potassium 4.1 meq/L 3.5 - 5.1 09/09/2016 [facility] POC Chloride 99 meq/L 95 - 109 09/09/2016 [facility] CHEM PANEL A/G Ratio 0.9 0.7 - 1.6 09/03/2016 [facility] CHEM PANEL Globulin 3.7 g/dL 2.7 - 4.2 09/03/2016 [facility] CHEM PANEL AGAP 11.4 meq/L 10.0 - 20.0 09/03/2016 [facility] CHEM PANEL B/C Ratio 35 6 - 25 09/03/2016 [facility] CHEM PANEL eGFR 91 mL/min/1.73m2 09/03/2016 Result Comment: The eGFR is calculated using the CKD-EPI formula. In most young, healthy individuals the eGFR will be >90 mL/min/1.73m2. The eGFR declines with age. An eGFR of 60-89 may be normal in some populations, particularly the elderly, for whom the CKD-EPI formula has not been extensively validated. Use of the eGFR is not recommended in the following populations: Individuals with unstable creatinine concentrations, including patients and those with serious co-morbid conditions. Patients with extremes in muscle mass or diet. The data above are obtained from the National Kidney Disease Education Program (NKDEP) which additionally recommends that when the eGFR is used in patients with extremes of body mass index for purposes of drug dosing, the eGFR should be multiplied by the estimated BMI. [facility] CHEM PANEL AST 13 unit/L 0 - 37 09/03/2016 [facility] CHEM PANEL ALT 15 unit/L 0 - 65 09/03/2016 [facility] CHEM PANEL Albumin Lvl 3.5 g/dL 3.5 - 5.0 09/03/2016 [facility] CHEM PANEL Total Protein 7.2 g/dL 6.4 - 8.4 09/03/2016 [facility] CHEM PANEL Calcium Lvl 8.3 mg/dL 8.5 - 10.5 09/03/2016 [facility] CHEM PANEL Potassium Lvl 3.4 meq/L 3.5 - 5.1 09/03/2016 [facility] CHEM PANEL Chloride Lvl 101 meq/L 95 - 109 09/03/2016 [facility] CHEM PANEL CO2 31 meq/L 24 - 32 09/03/2016 [facility] CHEM PANEL Alk Phos 104 unit/L 39 - 136 09/03/2016 [facility] CHEM PANEL Bili Total 0.3 mg/dL 0.2 - 1.3 09/03/2016 [facility] CHEM PANEL BUN 21 mg/dL 7 - 22 09/03/2016 [facility] CHEM PANEL Creatinine Lvl 0.60 mg/dL 0.50 - 1.40 09/03/2016 [facility] CHEM PANEL Sodium Lvl 140 meq/L 135 - 145 09/03/2016 [facility] HEMATOLOGY Monocytes 6.9 % 2.0 - 12.0 09/03/2016 [facility] HEMATOLOGY Segs 74.9 % 45.0 - 75.0 09/03/2016 [facility] HEMATOLOGY Lymphocytes 15.3 % 20.0 - 40.0 09/03/2016 [facility] HEMATOLOGY Eosinophils 2.2 % 0.0 - 4.0 09/03/2016 [facility] HEMATOLOGY Monocytes # 0.5 K/CMM 0.0 - 0.8 09/03/2016 [facility] HEMATOLOGY Segs-Bands # 5.5 K/CMM 1.5 - 8.1 09/03/2016 [facility] HEMATOLOGY Lymphocytes # 1.1 K/CMM 1.0 - 5.5 09/03/2016 [facility] HEMATOLOGY Basophils 0.7 % 0.0 - 1.0 09/03/2016 [facility] HEMATOLOGY Eosinophils # 0.2 K/CMM 0.0 - 0.5 09/03/2016 [facility] HEMATOLOGY Basophils # 0.1 K/CMM 0.0 - 0.2 09/03/2016 [facility] HEMATOLOGY PT 13.7 s 12.0 - 14.7 09/03/2016 [facility] INR 1.03 0.85 - 1.17 09/03/2016 [facility] PTT 27.4 s 22.9 - 35.8 09/03/2016 [facility] RDW 12.7 % 11.5 - 14.5 09/03/2016 [facility] MCHC 33.7 g/dL 32.0 - 36.0 09/03/2016 [facility] MPV 8.0 fL 7.4 - 10.4 09/03/2016 [facility] Platelet 258 K/CMM 133 - 450 09/03/2016 [facility] RBC 4.04 M/CMM 4.20 - 5.40 09/03/2016 [facility] WBC 7.4 K/CMM 3.7 - 10.4 09/03/2016 [facility] MCV 96.6 fL 80.0 - 98.0 09/03/2016 [facility] MCH 32.6 pg 27.0 - 31.0 09/03/2016 [facility] SPECIAL CHEMISTRY Hgb A1C 8.1 % <=5.6 % 09/03/2016 [facility] URINE AND STOOL UA Mucus Few /LPF None Seen /LPF 09/03/2016 [facility] URINE AND STOOL UA Nitrite Negative (09/03/16 8:01 AM) Negative 09/03/2016 [facility] URINE AND STOOL UA Urobilinogen 4.0 mg/dL 0.1 - 1.0 09/03/2016 [facility] URINE AND STOOL UA Blood Negative (09/03/16 8:01 AM) Negative 09/03/2016 [facility] URINE AND STOOL UA Bacteria Occasional /HPF None Seen /HPF 09/03/2016 [facility] URINE AND STOOL UA Sq Epi Occasional /LPF Few /LPF 09/03/2016 [facility] URINE AND STOOL UA WBC 91 /HPF 0 - 5 09/03/2016 [facility] URINE AND STOOL UA Leuk Est Large *ABN* (09/03/16 8:01 AM) Negative 09/03/2016 [facility] URINE AND STOOL UA Ketones Negative mg/dL Negative mg/dL 09/03/2016 [facility] URINE AND STOOL UA Bili Negative *NA* (09/03/16 8:01 AM) Negative 09/03/2016 [facility] URINE AND STOOL UA Protein Negative mg/dL Negative mg/dL 09/03/2016 [facility] URINE AND STOOL UA Glucose Negative mg/dL Negative mg/dL 09/03/2016 [facility] URINE AND STOOL UA Spec Grav 1.025 <=1.030 09/03/2016 [facility] URINE AND STOOL UA pH 7.0 5.0 - 8.0 09/03/2016 [facility] URINE AND STOOL UA Color Yellow *NA* (09/03/16 8:01 AM) Yellow 09/03/2016 [facility] URINE AND STOOL UA Turbidity Slight *ABN* (09/03/16 8:01 AM) Clear 09/03/2016 [facility] Knee wo contrast w/3D CT Knee wo contrast w/3D CT EXAM: CT RIGHT KNEE WITHOUT CONTRAST DATE: 07/17/2016 3:25 PM [employer] INDICATION: pain in right knee COMPARISON: Radiographs performed 07/09/2016. TECHNIQUE: Volumetric acquisition of the right knee without contrast. Axial, sagittal and coronal reconstructions. IV contrast: None. DLP: 536 mGy-cm FINDINGS: There is evidence of a comminuted depressed fracture of the lateral tibial plateau. Fracture is mainly along the weightbearing zone of the lateral tibial plateau with depression of around 10 mm and split of the lateral tibial condyle. It extends to the lateral tibial metaphysis cortex and anterior tibial metaphysis cortex. Fracture is involving the tibiofibular joint. Undisplaced fracture also extends medially to involve the medial tibial plateau as well as the base of the intercondylar eminence. Medially, the fracture appears oblique extending from the anterior tibial plateau centrally and exits along the posteromedial corner. No evidence of displacement. Femoral condyles are intact. No significant joint effusion. No soft tissue abnormality except for mild swelling adjacent to the fracture region. IMPRESSION: 1. Comminuted depressed fracture of the lateral tibial plateau extending to the medial tibial plateau and involving the base of the intercondylar eminence. Schatzker Type II. 07/17/2016 - - Read by: Jian Terry MD Dictated Date/time: 07/17/16 16:40 Electronically Signed by: Jian Terry MD 07/17/16 16:56 FINAL REPORT [facility] Knee series 3 views DX Knee series 3 views DX Knee series 3 views DX CLINICAL HISTORY: Pain from a fall FINDINGS/IMPRESSION: 3 views of the right knee are submitted for review. Depressed fracture of the lateral tibial plateau is visualized.. Fat fluid level is noted in the suprapatellar bursa. There is generalized osteopenia limiting the overall evaluation. Further evaluation may be obtained with CT of right knee as clinically indicated. SL: OSCAR 07/09/2016 - - Read by: Faustino Espinosa MD Dictated Date/time: 07/09/16 17:50 Electronically Signed by: Faustino Espinosa MD 07/09/16 17:54 FINAL REPORT [place] Hip 2/3 views uni DX Hip 2/3 views uni DX Hip 2/3 views uni DX CLINICAL HISTORY: Pain from a fall FINDINGS/IMPRESSION: AP and oblique views of the right hip reveal no evidence for fracture or dislocation. No significant degenerative change is present. Surrounding soft tissues are unremarkable. There is generalized osteopenia. SL: OSCAR 07/09/2016 - - Read by: Faustino Espinosa MD Dictated Date/time: 07/09/16 17:54 Electronically Signed by: Faustino Espinosa MD 07/09/16 17:56 FINAL REPORT [facility] Femur series DX Femur series DX Patient Name: LAKSHMI DOBBINS : 1940; Age: 75 years y/o Female MR: [id number] Study: 4 view examination of the right femur dated 07/21/2016. Clinical Indication: Right thigh pain from a fall; Comparison: None See right knee examination for description of lateral tibial plateau fracture. Lipohemarthrosis is seen to the right knee. Mild to moderate spurring at the quadriceps tendon insertion site on the patella. No other fracture or dislocation. SL: KEVIN 07/09/2016 - - Read by: Sravan Wyatt MD Dictated Date/time: 07/09/16 17:50 Electronically Signed by: Sravan Wyatt MD 07/09/16 17:51 FINAL REPORT [facility] Tibia fibula series DX Tibia fibula series DX Tibia fibula series DX CLINICAL HISTORY: Pain from a fall FINDINGS/IMPRESSION: 2 views of the right tibia and fibula reveal depressed fracture of the lateral tibial plateau. Fracture line extends into the metaphysis of the tibia. Fibula appears to be grossly intact. There is extensive generalized osteopenia. No radiopaque foreign body is visualized. SL: OSCAR 07/09/2016 - - Read by: Faustino Espinosa MD Dictated Date/time: 07/09/16 17:52 Electronically Signed by: Faustino Espinosa MD 07/09/16 17:53 FINAL REPORT [facility] Spine lumbar series DX Spine lumbar series DX Examination: Lumbar spine, 5 views History: M54.5 Low back pain Comparison: None. Findings: Multiple views of the lumbar spine show 5 nonrib bearing lumbar vertebra. The bones are demineralized. Grade 1 anterolisthesis of L4 over L5 by 9 mm is seen. Severe disc height loss and vacuum disc phenomena with mild marginal osteophyte formation at L4-L5 and L5-S1 is seen, compatible with severe degenerative disc disease. Severe facet arthrosis in the lower lumbar spine is seen. No pars interarticularis defects are noted. IMPRESSION: Advanced degenerative change of the lower lumbar spine. SL: 16 03/23/2015 - - Read by: Aguilar Craig MD Dictated Date/time: 03/23/15 13:56 Electronically Signed by: Aguilar Craig MD 03/23/15 13:58 FINAL REPORT [facility] Spine thoracic 3 views DX Spine thoracic 3 views DX Examination: Thoracic spine, 3 views History: M54.5 Low back pain Comparison: None. Findings: Multiple views of the thoracic spine show diffuse bony demineralization. Scattered chronic mild anterior wedging deformities in the mid to lower thoracic spine are seen. No acute compression fracture is seen. Moderate to severe multilevel degenerative disc disease throughout the thoracic spine is seen with disc height loss and marginal osteophytes. IMPRESSION: Moderate to severe degenerative changes of the thoracic spine. SL: 16 03/23/2015 - - Read by: Aguilar Craig MD Dictated Date/time: 03/23/15 14:02 Electronically Signed by: Aguilar Craig MD 03/23/15 14:02 FINAL REPORT [facility] CARDIAC ENZYMES Total CK 76 unit/L 12 - 191 01/16/2015 [facility] CARDIAC ENZYMES CK MB 1.0 ng/mL 0.5 - 3.6 01/16/2015 [facility] CARDIAC ENZYMES Troponin-I null 0.00 - 0.40 01/16/2015 [facility] CARDIAC ENZYMES CK MB Index 1.3 0.0 - 2.5 01/16/2015 [facility] CHEM PANEL eGFR 74 mL/min/1.73m2 01/16/2015 Result Comment: The eGFR is calculated using the CKD-EPI formula. In most young, healthy individuals the eGFR will be >90 mL/min/1.73m2. The eGFR declines with age. An eGFR of 60-89 may be normal in some populations, particularly the elderly, for whom the CKD-EPI formula has not been extensively validated. Use of the eGFR is not recommended in the following populations: Individuals with unstable creatinine concentrations, including patients and those with serious co-morbid conditions. Patients with extremes in muscle mass or diet. The data above are obtained from the National Kidney Disease Education Program (NKDEP) which additionally recommends that when the eGFR is used in patients with extremes of body mass index for purposes of drug dosing, the eGFR should be multiplied by the estimated BMI. [facility] CHEM PANEL Potassium Lvl 4.5 meq/L 3.5 - 5.1 01/16/2015 [facility] CHEM PANEL Creatinine Lvl 0.8 mg/dL 0.5 - 1.4 01/16/2015 [facility] CHEM PANEL Sodium Lvl 141 meq/L 135 - 145 01/16/2015 [facility] CHEM PANEL Chloride Lvl 106 meq/L 95 - 109 01/16/2015 [facility] CHEM PANEL Calcium Lvl 8.3 mg/dL 8.5 - 10.5 01/16/2015 [facility] CHEM PANEL Bili Total 0.3 mg/dL 0.2 - 1.3 01/16/2015 [facility] CHEM PANEL AGAP 9.5 meq/L 10.0 - 20.0 01/16/2015 [facility] CHEM PANEL B/C Ratio 24 6 - 25 01/16/2015 [facility] CHEM PANEL Globulin 3.7 g/dL 2.0 - 4.0 01/16/2015 [facility] CHEM PANEL A/G Ratio 0.9 0.7 - 1.6 01/16/2015 [facility] CHEM PANEL ALT 18 unit/L 0 - 65 01/16/2015 [facility] CHEM PANEL Albumin Lvl 3.4 g/dL 3.5 - 5.0 01/16/2015 [facility] CHEM PANEL Alk Phos 172 unit/L 39 - 136 01/16/2015 [facility] CHEM PANEL AST 16 unit/L 0 - 37 01/16/2015 [facility] CHEM PANEL Glucose Lvl 120 mg/dL 70 - 99 01/16/2015 [facility] CHEM PANEL BUN 19 mg/dL 7 - 22 01/16/2015 [facility] CHEM PANEL Total Protein 7.1 g/dL 6.4 - 8.4 01/16/2015 [facility] CHEM PANEL CO2 30 meq/L 24 - 32 01/16/2015 [facility] HEMATOLOGY INR 0.94 0.85 - 1.17 01/16/2015 [facility] HEMATOLOGY PT 12.6 s 12.0 - 14.7 01/16/2015 [facility] HEMATOLOGY PTT 26.4 s 22.9 - 35.8 01/16/2015 [facility] HEMATOLOGY MPV 8.4 fL 7.4 - 10.4 01/16/2015 [facility] HEMATOLOGY RDW 13.0 % 11.5 - 14.5 01/16/2015 [facility] HEMATOLOGY Platelet 215 K/CMM 133 - 450 01/16/2015 [facility] HEMATOLOGY Hct 39.0 % 36.0 - 48.0 01/16/2015 [facility] HEMATOLOGY MCV 96.1 fL 80.0 - 98.0 01/16/2015 [facility] HEMATOLOGY Hgb 13.3 g/dL 12.0 - 16.0 01/16/2015 [facility] HEMATOLOGY RBC 4.06 M/CMM 4.20 - 5.40 01/16/2015 [facility] HEMATOLOGY MCHC 34.1 g/dL 32.0 - 36.0 01/16/[address] [facility] MCH 32.8 pg 27.0 - 31.0 01/16/[address] [facility] WBC 7.5 K/CMM 3.7 - 10.4 01/16/2015 [facility] HEMATOLOGY Monocytes 8.8 % 2.0 - 12.0 01/16/2015 [facility] HEMATOLOGY Lymphocytes 21.9 % 20.0 - 40.0 01/16/2015 [facility] HEMATOLOGY Segs 65.6 % 45.0 - 75.0 01/16/2015 [facility] HEMATOLOGY Basophils # 0.1 K/CMM 0.0 - 0.2 01/16/2015 [facility] HEMATOLOGY Eosinophils # 0.2 K/CMM 0.0 - 0.5 01/16/2015 [facility] HEMATOLOGY Monocytes # 0.7 K/CMM 0.0 - 0.8 01/16/2015 [facility] HEMATOLOGY Lymphocytes # 1.6 K/CMM 1.0 - 5.5 01/16/2015 [facility] HEMATOLOGY Segs-Bands # 4.9 K/CMM 1.5 - 8.1 01/16/2015 [facility] HEMATOLOGY Eosinophils 2.9 % 0.0 - 4.0 01/16/2015 [facility] HEMATOLOGY Basophils 0.8 % 0.0 - 1.0 01/16/2015 [facility] URINE AND STOOL UA Color Ltyellow 01/16/2015 [facility] URINE AND STOOL UA Urobilinogen <=1.0 mg/dL 0.1 - 1.0 01/16/2015 [facility] URINE AND STOOL UA Sq Epi Occasional /LPF Few /LPF 01/16/2015 [facility] URINE AND STOOL UA WBC 4 /HPF 0 - 5 01/16/2015 [facility] URINE AND STOOL UA Bacteria Occasional /HPF None Seen /HPF 01/16/2015 [facility] URINE AND STOOL UA RBC null 0 - 2 01/16/2015 [facility] URINE AND STOOL UA Nitrite Negative (01/16/15 2:59 PM) Negative 01/16/2015 [facility] URINE AND STOOL UA Leuk Est Small *ABN* (01/16/15 2:59 PM) Negative 01/16/2015 [facility] URINE AND STOOL UA Glucose 500 mg/dL Negative mg/dL 01/16/2015 [facility] URINE AND STOOL UA pH 6.0 5.0 - 8.0 01/16/2015 [facility] URINE AND STOOL UA Ketones Negative mg/dL Negative mg/dL 01/16/2015 [facility] URINE AND STOOL UA Blood Negative (01/16/15 2:59 PM) Negative 01/16/2015 [facility] URINE AND STOOL UA Bili Negative *NA* (01/16/15 2:59 PM) Negative 01/16/2015 [facility] URINE AND STOOL UA Turbidity Clear (01/16/15 2:59 PM) Clear 01/16/2015 [facility] URINE AND STOOL UA Spec Grav 1.010 <=1.030 01/16/2015 [facility] URINE AND STOOL UA Protein Negative mg/dL Negative mg/dL 01/16/2015 [facility] Chest 1view DX Chest 1view DX HISTORY: Dizziness. Shortness of breath One view chest. Comparison 09/03/2014. Mild fibrotic changes in the left lower lobe. Lung erickson otherwise clear. Heart size normal. No overt CHF or pulmonary edema. Tortuous thoracic aorta. Degenerative changes dorsal spine. Right shoulder arthroplasty. IMPRESSION: No acute finding. SL:13 01/16/2015 - - Read by: Popeye Arias MD Dictated Date/time: 01/16/15 15:16 Electronically Signed by: Popeye Arias MD 01/16/15 15:16 FINAL REPORT [facility] Brain wo contrast CT Brain wo contrast CT CT BRAIN WITHOUT CONTRAST INDICATION: Altered level of consciousness COMPARISON: CT brain 12/20/2014 FINDINGS: There are generalized involutional changes of the brain and microangiopathic changes of the white matter. There is no evidence of acute vascular insults, space occupying lesions, hemorrhage, hydrocephalus, midline shift, or extra- axial collections. The calvarium is intact. IMPRESSION: Chronic age related changes of the brain. No acute intracranial abnormalities are visualized. SL: 16 01/16/2015 - - Read by: Fred Stanley MD Dictated Date/time: 01/16/15 15:14 Electronically Signed by: Fred Stanley MD 01/16/15 15:15 FINAL REPORT [facility] CARDIAC ENZYMES Troponin-I null 0.00 - 0.40 12/21/2014 [facility] ELECTROLYTES Potassium Lvl 3.9 meq/L 3.5 - 5.1 12/21/2014 [facility] ELECTROLYTES Sodium Lvl 138 meq/L 135 - 145 12/21/2014 [facility] ELECTROLYTES Chloride Lvl 102 meq/L 95 - 109 12/21/2014 [facility] ELECTROLYTES Calcium Lvl 8.5 mg/dL 8.5 - 10.5 12/21/2014 [facility] ELECTROLYTES eGFR 74 mL/min/1.73m2 12/21/2014 Result Comment: The eGFR is calculated using the CKD-EPI formula. In most young, healthy individuals the eGFR will be >90 mL/min/1.73m2. The eGFR declines with age. An eGFR of 60-89 may be normal in some populations, particularly the elderly, for whom the CKD-EPI formula has not been extensively validated. Use of the eGFR is not recommended in the following populations: Individuals with unstable creatinine concentrations, including patients and those with serious co-morbid conditions. Patients with extremes in muscle mass or diet. The data above are obtained from the National Kidney Disease Education Program (NKDEP) which additionally recommends that when the eGFR is used in patients with extremes of body mass index for purposes of drug dosing, the eGFR should be multiplied by the estimated BMI. [facility] ELECTROLYTES Bili Total 0.5 mg/dL 0.2 - 1.3 12/21/2014 [facility] ELECTROLYTES Alk Phos 177 unit/L 39 - 136 12/21/2014 [facility] ELECTROLYTES ALT 21 unit/L 0 - 65 12/21/2014 [facility] ELECTROLYTES AST 16 unit/L 0 - 37 12/21/2014 [facility] ELECTROLYTES Albumin Lvl 3.6 g/dL 3.5 - 5.0 12/21/2014 [facility] ELECTROLYTES CO2 31 meq/L 24 - 32 12/21/2014 [facility] ELECTROLYTES Total Protein 7.0 g/dL 6.4 - 8.4 12/21/2014 [facility] ELECTROLYTES Creatinine Lvl 0.8 mg/dL 0.5 - 1.4 12/21/2014 [facility] ELECTROLYTES BUN 15 mg/dL 7 - 22 12/21/2014 [facility] ELECTROLYTES Glucose Lvl 181 mg/dL 70 - 99 12/21/2014 [facility] ELECTROLYTES Globulin 3.4 g/dL 2.0 - 4.0 12/21/2014 [facility] ELECTROLYTES A/G Ratio 1.1 0.7 - 1.6 12/21/2014 [facility] ELECTROLYTES B/C Ratio 19 6 - 25 12/21/2014 [facility] ELECTROLYTES AGAP 8.9 meq/L 10.0 - 20.0 12/21/2014 [facility] HEMATOLOGY MCHC 33.4 g/dL 32.0 - 36.0 12/21/[address] [facility] MPV 7.9 fL 7.4 - 10.4 12/21/[address] [facility] RDW 13.2 % 11.5 - 14.5 12/21/[address] [facility] Platelet 204 K/CMM 133 - 450 12/21/[address] [facility] Hgb 12.3 g/dL 12.0 - 16.0 12/21/[address] [facility] RBC 3.91 M/CMM 4.20 - 5.40 12/21/[address] [facility] MCH 31.6 pg 27.0 - 31.0 12/21/[address] [facility] Hct 36.9 % 36.0 - 48.0 12/21/[address] [facility] MCV 94.4 fL 80.0 - 98.0 12/21/[address] [facility] WBC 7.7 K/CMM 3.7 - 10.4 12/21/[address] [facility] Segs-Bands # 5.3 K/CMM 1.5 - 8.1 12/21/[address] [facility] Lymphocytes # 1.6 K/CMM 1.0 - 5.5 12/21/[address] [facility] Basophils 0.5 % 0.0 - 1.0 12/21/[address] [facility] Eosinophils 1.8 % 0.0 - 4.0 12/21/[address] [facility] Lymphocytes 21.1 % 20.0 - 40.0 12/21/[address] [facility] Monocytes 8.4 % 2.0 - 12.0 12/21/[address] [facility] Segs 68.2 % 45.0 - 75.0 12/21/[address] [facility] Eosinophils # 0.1 K/CMM 0.0 - 0.5 12/21/[address] [facility] Monocytes # 0.6 K/CMM 0.0 - 0.8 12/21/2014 [facility] Spine cervical wo contrast CT Spine cervical wo contrast CT PROCEDURE: Spine cervical wo contrast CT CLINICAL INFORMATION Pain, Trauma COMPARISON: CAT scans 02/27/2013. Maintained cervical spine alignment, vertebral body heights. Disc height loss greatest at C3-C4, C5-C6, C6-C7 with anterior spurring. Normal C1-C2 relation, intact dens. Facet arthritic change. Disc osteophyte complex at C5-C6 with mild bilateral neural foraminal narrowing. Prominent right thyroid lobe. IMPRESSION: 1. Cervical spondylosis with foraminal narrowing as described above. 2. Prominent right thyroid lobe, correlation with a thyroid ultrasound is recommended. DLP 562 mGy-cm SL: 12/20/2014 - - Read by: Kavin Serna MD Dictated Date/time: 12/20/14 21:11 Electronically Signed by: Kavin Serna MD 12/20/14 21:17 FINAL REPORT [facility] Brain wo contrast CT Brain wo contrast CT PROCEDURE: Brain wo contrast CT CLINICAL INDICATION: Head trauma COMPARISON: 08/2014 FINDINGS: There is diffuse volume loss with corresponding prominence of the ventricles and sulci. There are microangiopathic changes of the white matter. There is no hemorrhage, mass or midline shift. Bilateral carotid siphon calcification. IMPRESSION: 1. Chronic changes as described above, no acute intracranial process. 2. No evidence for hemorrhage, mass lesion or acute infarct. DLP: 896 mGy-cm SL: 12/20/2014 - - Read by: Kavin Serna MD Dictated Date/time: 12/20/14 21:09 Electronically Signed by: Kavin Serna MD 12/20/14 21:10 FINAL REPORT [facility] Brain wo contrast CT Brain wo contrast CT CT Head no Contrast: COMPARISON: 02/27/2013 CLINICAL HX: Head trauma, headaches TECHNIQUE: Contiguous transaxial images of the brain were performed without administration of IV contrast. FINDINGS: There is no evidence for parenchymal bleed, extra-axial collections, intracranial masses or midline shift. No displaced fractures of the calvarium or other significant bony abnormality is noted. There is mild cerebral atrophy. Decreased attenuation in the periventricular white matter is likely related to chronic ischemic change from small vessel disease. No acute infarct is evident. The visualized paranasal sinuses and the mastoids are clear. IMPRESSION: No significant acute brain abnormality is noted. SL:13 09/03/2014 - - Read by: Faustino Espinosa MD Dictated Date/time: 09/03/14 10:52 Electronically Signed by: Faustino Espinosa MD 09/03/14 10:55 FINAL REPORT [facility] Ribs unilateral 3 views w PA chest DX Ribs unilateral 3 views w PA chest DX Left ribs: Mild deformity of some of the lower left anterior ribs is seen consistent with old fractures. There is no evidence of acute fractures or other significant osseous abnormalities. There are no acute intrathoracic abnormalities. A right shoulder hemiarthroplasty is noted. IMPRESSION: No acute radiographic abnormalities of the left ribs. SL:13 09/03/2014 - - Read by: Uriel Mora MD Dictated Date/time: 09/03/14 11:01 Electronically Signed by: Uriel Mora MD 09/03/14 11:02 FINAL REPORT [facility] CHEMISTRY Globulin 3.6 g/dL 2.0 - 4.0 02/27/2013 Normal [facility] CHEMISTRY AGAP 9.6 meq/L 10.0 - 20.0 02/27/2013 LOW [facility] CHEMISTRY A/G Ratio 1.0 0.7 - 1.6 02/27/2013 Normal [facility] CHEMISTRY B/C Ratio 31 6 - 25 02/27/2013 HI [facility] CHEMISTRY eGFR 88 mL/min/1.73m2 02/27/2013 NA 1Result Comment: The eGFR is calculated using the CKD-EPI formula. In most young, healthy individuals the eGFR will be >90 mL/min/1.73m2. The eGFR declines with age. An eGFR of 60-89 may be normal in some populations, particularly the elderly, for whom the CKD-EPI formula has not been extensively validated. Use of the eGFR is not recommended in the following populations: Individuals with unstable creatinine concentrations, including patients and those with serious co-morbid conditions. Patients with extremes in muscle mass or diet. The data above are obtained from the National Kidney Disease Education Program (NKDEP) which additionally recommends that when the eGFR is used in patients with extremes of body mass index for purposes of drug dosing, the eGFR should be multiplied by the estimated BMI. [facility] CHEMISTRY AST 16 unit/L 0 - 37 02/27/2013 Normal [facility] CHEMISTRY Glucose Lvl 122 mg/dL 70 - 99 02/27/2013 HI 2Interpretive Data: Adult reference range values reflect the clinical guidelines of the [place] [employer]. [facility] CHEMISTRY BUN 22 mg/dL 7 - 22 02/27/2013 Normal [facility] CHEMISTRY Bili Total 0.4 mg/dL 0.2 - 1.3 02/27/2013 Normal [facility] CHEMISTRY ALT 17 unit/L 0 - 65 02/27/2013 Normal [facility] CHEMISTRY Total Protein 7.1 g/dL 6.4 - 8.4 02/27/2013 Normal [facility] CHEMISTRY Alk Phos 112 unit/L 39 - 136 02/27/2013 Normal [facility] CHEMISTRY Albumin Lvl 3.5 g/dL 3.5 - 5.0 02/27/2013 Normal [facility] CHEMISTRY Calcium Lvl 8.5 mg/dL 8.5 - 10.5 02/27/2013 Normal [facility] CHEMISTRY CO2 31 meq/L 24 - 32 02/27/2013 Normal [facility] CHEMISTRY Creatinine Lvl 0.7 mg/dL 0.5 - 1.4 02/27/2013 Normal [facility] CHEMISTRY Potassium Lvl 4.6 meq/L 3.5 - 5.1 02/27/2013 Normal [facility] CHEMISTRY Chloride Lvl 107 meq/L 95 - 109 02/27/2013 Normal [facility] CHEMISTRY Sodium Lvl 143 meq/L 135 - 145 02/27/2013 Normal [facility] HEMATOLOGY RDW 17.9 % 11.5 - 14.5 02/27/2013 HI [facility] HEMATOLOGY MCHC 32.7 g/dL 32.0 - 36.0 02/27/2013 Normal [facility] HEMATOLOGY Platelet 245 K/CMM 133 - 450 02/27/2013 Normal [facility] HEMATOLOGY MCV 118.2 fL 81.0 - 99.0 02/27/2013 HI [facility] HEMATOLOGY Hct 33.5 % 36.0 - 48.0 02/27/2013 LOW [facility] HEMATOLOGY MCH 38.7 pg 27.0 - 31.0 02/27/2013 [facility] HEMATOLOGY WBC 6.4 K/CMM 3.7 - 10.4 02/27/2013 Normal [facility] HEMATOLOGY Hgb 10.9 g/dL 12.0 - 16.0 02/27/2013 LOW [facility] HEMATOLOGY RBC 2.83 M/CMM 4.20 - 5.40 02/27/2013 LOW [facility] HEMATOLOGY MPV 7.2 fL 7.4 - 10.4 02/27/2013 LOW [facility] HEMATOLOGY Macrocyte 2+ *ABN* (02/27/2013 11:15:00) None Seen 02/27/2013 ABN [facility] HEMATOLOGY Monocytes # 0.4 K/CMM 0.0 - 0.8 02/27/2013 Normal [facility] HEMATOLOGY Basophils # 0.0 K/CMM 0.0 - 0.2 02/27/2013 Normal [facility] HEMATOLOGY Eosinophils # 0.1 K/CMM 0.0 - 0.5 02/27/2013 Normal [facility] HEMATOLOGY Lymphocytes # 1.0 K/CMM 1.0 - 5.5 02/27/2013 Normal [facility] HEMATOLOGY Monocytes 5.7 % 2.0 - 12.0 02/27/2013 Normal [facility] HEMATOLOGY Segs-Bands # 4.9 K/CMM 1.5 - 8.1 02/27/2013 Normal [facility] HEMATOLOGY Basophils 0.7 % 0.0 - 1.0 02/27/2013 Normal [facility] HEMATOLOGY Eosinophils 1.7 % 0.0 - 4.0 02/27/2013 Normal [facility] HEMATOLOGY Segs 76.8 % 45.0 - 75.0 02/27/2013 HI [facility] HEMATOLOGY Lymphocytes 15.1 % 20.0 - 40.0 02/27/2013 LOW [facility] Hip bilateral w pelvis and both lat hips Hip bilateral w pelvis and both lat hips PELVIS, SINGLE VIEW AND HIPS, 2 VIEWS: CLINICAL HISTORY: Trauma. 1. Diffuse osteopenia. 2. No acute fracture, dislocation, or focal osseous lesion is appreciated. 3. 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 4. Mild lumbar spondylosis and facet arthrosis. SL:02/27/2013 - - Read by: Sorin Berry Dictated Date/time: 02/27/13 11:46 Electronically Signed by: Sorin Berry MD 02/27/13 11:48 FINAL REPORT [facility] Ankle 3 views Ankle 3 views Left ankle, 3 views: CLINICAL HISTORY: Trauma 1. Diffuse osteopenia. 2. No acute fracture, dislocation, or focal osseous lesion is appreciated. 3. Calcaneal spurs. 4. Mild osteoarthritis. 5. Mild to moderate diffuse soft tissue thickening. SL:02/27/2013 - - Read by: Sorin Berry Dictated Date/time: 02/27/13 11:48 Electronically Signed by: Sorin Berry MD 02/27/13 11:49 FINAL REPORT [facility] Spine cervical wo contrast CT Spine cervical wo contrast CT EXAM: CT Cervical spine. HISTORY: Trauma, fall. TECHNIQUE: Axial views of the cervical spine with sagittal and coronal reformations. FINDINGS: 1. No acute traumatic injury seen to the cervical spine. 2. Degenerative changes with disc space narrowing and posterior marginal osteophytes C3-C4, C5-C6 and C6-C7 with facet and uncovertebral joint hypertrophy and neuroforaminal stenoses. Generalized osteopenia. SL:02/27/2013 - - Read by: Won Godwin Dictated Date/time: 02/27/13 11:01 Electronically Signed by: Won Godwin MD 02/27/13 11:10 FINAL REPORT [facility] Brain wo contrast CT Brain wo contrast CT EXAM: CT head HISTORY: Head trauma. TECHNIQUE: Axial noncontrast images of the head FINDINGS: Age-related parenchymal involutional changes and periventricular and subcortical white matter chronic small vessel ischemic changes. 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 No parenchymal edema, mass-effect or midline shift. The ventricles are appropriate size for age. No intracranial hemorrhage or abnormal extra-axial fluid collection seen. No skull fracture seen. The visualized paranasal sinuses and mastoid air cells are clear. Calcifications of the carotid siphons bilaterally. IMPRESSION: Small left parietal cephalhematoma. Otherwise, no acute intracranial traumatic injury. SL:13 02/27/2013 - - Read by: Won Godwin Dictated Date/time: 02/27/13 10:54 Electronically Signed by: Won Godwin MD 02/27/13 10:59 FINAL REPORT [facility] Vital Signs Vital Sign Value Date Comments Source Systolic (mm Hg) 146 09/12/2016 [facility] Diastolic (mm Hg) 80 09/12/2016 [facility] Temperature Oral (F) 98.3 F 09/12/2016 [facility] Heart Rate 93 09/12/2016 [facility] Respitory Rate 20 09/12/2016 [facility] Temperature Oral (F) 98.1 F 09/12/2016 [facility] Respitory Rate 20 09/12/2016 [facility] Heart Rate 87 09/12/2016 [facility] Systolic (mm Hg) 126 09/12/2016 [facility] Diastolic (mm Hg) 73 09/12/2016 [facility] Heart Rate 74 09/12/2016 [facility] Respitory Rate 18 09/12/2016 [facility] Temperature Oral (F) 98 F 09/12/2016 [facility] Systolic (mm Hg) 113 09/12/2016 [facility] Diastolic (mm Hg) 73 09/12/2016 [facility] BMI Calculated 29.69 09/09/2016 [facility] Weight 73.636 09/09/2016 [facility] Height 157.48 cm 09/09/2016 [facility] BMI Calculated 30.06 09/03/2016 [facility] Height 157.48 cm 09/03/2016 [facility] Weight 74.545 09/03/2016 [facility] Height 157.48 cm 09/01/2016 [facility] Weight 73.636 09/01/2016 [facility] BMI Calculated 29.69 09/01/2016 [facility] Temperature Oral (F) 98.9 F 07/09/2016 [facility] Respitory Rate 16 07/09/2016 [facility] Heart Rate 86 07/09/2016 [facility] Systolic (mm Hg) 175 07/09/2016 [facility] Diastolic (mm Hg) 91 07/09/2016 [facility] Height 157.48 cm 07/09/2016 [facility] BMI Calculated 32.07 07/09/2016 [facility] Weight 79.545 07/09/2016 [facility] Temperature Oral (F) 98.4 F 01/16/2015 [facility] Systolic (mm Hg) 123 01/16/2015 [facility] Diastolic (mm Hg) 48 01/16/2015 [facility] Respitory Rate 20 01/16/2015 [facility] Temperature Oral (F) 98.4 F 01/16/2015 [facility] Systolic (mm Hg) 122 01/16/2015 [facility] Diastolic (mm Hg) 52 01/16/2015 [facility] Respitory Rate 19 01/16/2015 [facility] Weight 83.636 01/16/2015 [facility] Temperature Oral (F) 98.4 F 01/16/2015 [facility] Height 157.48 cm 01/16/2015 [facility] BMI Calculated 33.72 01/16/2015 [facility] Heart Rate 71 01/16/2015 [facility] Systolic (mm Hg) 139 01/16/2015 [facility] Diastolic (mm Hg) 69 01/16/2015 [facility] Respitory Rate 16 01/16/2015 [facility] Temperature Oral (F) 98.1 F 12/21/2014 [facility] Systolic (mm Hg) 150 12/21/2014 [facility] Diastolic (mm Hg) 91 12/21/2014 [facility] Respitory Rate 18 12/21/2014 [facility] Heart Rate 65 12/21/2014 [facility] Weight 76.364 12/20/2014 [facility] BMI Calculated 30.79 12/20/2014 [facility] Heart Rate 77 12/20/2014 [facility] Systolic (mm Hg) 154 12/20/2014 [facility] Diastolic (mm Hg) 85 12/20/2014 [facility] Respitory Rate 18 12/20/2014 [facility] Temperature Oral (F) 98.2 F 12/20/2014 [facility] Height 157.48 cm 12/20/2014 [facility] Systolic (mm Hg) 104 09/03/2014 [facility] Diastolic (mm Hg) 57 09/03/2014 [facility] Heart Rate 74 09/03/2014 [facility] Respitory Rate 15 09/03/2014 [facility] Heart Rate 70 09/03/2014 [facility] Systolic (mm Hg) 124 09/03/2014 [facility] Diastolic (mm Hg) 60 09/03/2014 [facility] Height 157.48 cm 09/03/2014 [facility] BMI Calculated 34.64 09/03/2014 [facility] Weight 85.909 09/03/2014 [facility] Respitory Rate 20 09/03/2014 [facility] Heart Rate 73 09/03/2014 [facility] Temperature Oral (F) 98.1 F 09/03/2014 [facility] Systolic (mm Hg) 150 09/03/2014 [facility] Diastolic (mm Hg) 74 09/03/2014 [facility] Temperature Oral (F) 97.9 F 02/27/2013 [facility] Diastolic (mm Hg) 65 02/27/2013 [facility] Respitory Rate 20 02/27/2013 [facility] Systolic (mm Hg) 139 02/27/2013 [facility] Respitory Rate 20 02/27/2013 [facility] Respitory Rate 18 02/27/2013 [facility] Weight 79.091 02/27/2013 [facility] Heart Rate 87 02/27/2013 [facility] Diastolic (mm Hg) 76 02/27/2013 [facility] Temperature Oral (F) 97.8 F 02/27/2013 [facility] Systolic (mm Hg) 159 02/27/2013 [facility] Height 162.56 cm 02/27/2013 [facility] Encounters Location Location Details Encounter Type Encounter Number Reason For Visit Attending Provider ADM Date DC Date Status Source [facility] Emergency [id number] GEOFFREY VILLA 02/27/2013 02/27/2013 Active [facility] [id number] Pk Saucedo 09/03/2014 09/03/2014 [facility] [id number] Jeremy Franco 12/20/2014 12/21/2014 [facility] [id number] Jeremy Magdaiachristian 01/16/2015 01/16/2015 [facility] Outpatient [id number] [place] 03/23/2015 03/24/2015 [facility] Emergency [id number] Geoffrey Villa 07/09/2016 07/10/2016 [facility] Outpatient [id number] Kyree Romeo 07/17/2016 07/18/2016 [facility] Inpatient [id number] Jf Mcintyre 09/09/2016 09/12/2016 [facility] Patients [id number] Jf Mcintyre 10/15/2016 11/14/2016 [facility] Procedures Procedure Code Date Perfomer Comments Source Knee replacement [id number] 09/09/2016 [facility] Knee replacement [id number] 09/09/2016 [facility] Bilateral tubal ligation [id number] [facility] Bilateral tubal ligation [id number] [facility] Bilateral tubal ligation [id number] [facility] Hysterectomy [id number] [facility] Lumpectomy of breast [id number] [facility] Bilateral tubal ligation [id number] [facility] Hysterectomy [id number] [facility] Lumpectomy of breast [id number] [facility]
--- OUTSIDE RECORDS SUMMARY | 2018-09-11 02:51 | XMS REPORT | Summary of Care ---
Author Author [facility] Address Unknown Phone Unavailable Encounter GRECIA Weaver(FIN) [id number] Date(s): 10/15/16 - 11/13/16 [facility] Discharge Disposition: Home or Self Care Attending Physician: Jf Mcintyre MD Vital Signs No data available for this section Problem List Condition Effective Dates Status Health Status Informant Diabetes Resolved mellitus(Confirmed) Circulation Active problem(Confirmed) Fracture(Confirmed) Active [place]ULT [place] (hard of Resolved hearing)(Confirmed) High blood Resolved pressure(Confirmed) OAB (overactive Active bladder)(Confirmed) Hypercholesteremia(C Resolved onfirmed) Cataract(Confirmed) Active Breast cancer in Resolved female(Confirmed)1 Neuropathy(Confirmed Active ) Tremor of right Active hand.(Confirmed) TIA (transient Resolved ischemic attack)(Confirmed) Varicose vein of Active leg(Confirmed) 1left breast Allergies, Adverse Reactions, Alerts Substance Reaction Severity Status Food Eggs Active Vicodin Active Medications No data available for this section Results No data available for this section Immunizations No data available for this section Procedures Procedure Date Related Diagnosis Body Site Knee replacement 09/09/16 Bilateral tubal ligation Hysterectomy Lumpectomy of breast Social History Social History Type Response Substance Abuse Use: None. Sexual 1 Exercise 2 Employment/School 3 Alcohol Never Smoking Status Never smoker; Exposure to Tobacco Smoke None; Cigarette Smoking Last 365 Days No; Reg Smoking Cessation Counseling No 1no comments 2none 3house Assessment and Plan No data available for this section
--- OUTSIDE RECORDS SUMMARY | 2018-09-11 02:51 | XMS REPORT | Summary of Care ---
Author Author [facility] Organization [facility] Address Unknown Phone Unavailable Encounter GRECIA Weaver(MONICA) [id number] Date(s): 01/16/15 - 01/16/15 [facility] [address] [place] [address]- [phone] Discharge Diagnosis: Shortness of breath Discharge Diagnosis: Weakness Discharge Diagnosis: Vertigo Discharge Disposition: Home Attending Physician: Jeremy Franco MD Vital Signs 1 2 3 Most recent to oldest [Reference Range]: 157.48 cm (01/16/15 1:37 PM) Height 1 2 3 Most recent to oldest [Reference Range]: 98.4 DegF (01/16/15 5:17 PM) 98.4 DegF (01/16/15 4:00 PM) 98.4 DegF (01/16/15 1:37 PM) Temperature Oral [96.4-99.1 DegF] 1 2 3 Most recent to oldest [Reference Range]: 123/48 mmHg (01/16/15 5:17 PM) 122/52 mmHg (01/16/15 4:00 PM) 139/69 mmHg (01/16/15 1:37 PM) Blood Pressure [90-140/60-90 mmHg] 1 2 3 Most recent to oldest [Reference Range]: 20 BRMIN (01/16/15 5:17 PM) 19 BRMIN (01/16/15 4:00 PM) 16 BRMIN (01/16/15 1:37 PM) Respiratory Rate [14-20 BRMIN] 1 2 3 Most recent to oldest [Reference Range]: 71 bpm (01/16/15 1:37 PM) Peripheral Pulse Rate [60-100 bpm] 1 2 3 Most recent to oldest [Reference Range]: 83.636 kg (01/16/15 1:37 PM) Weight 1 2 3 Most recent to oldest [Reference Range]: 33.72 m2 (01/16/15 1:37 PM) Body Mass Index Problem List Condition Effective Dates Status Health Status Informant Diabetes Resolved mellitus(Confirmed) High blood Resolved pressure(Confirmed) Hypercholesteremia(C Resolved onfirmed) Allergies, Adverse Reactions, Alerts Substance Reaction Severity Status Food Eggs Active Vicodin Active Medications meclizine 25 mg, Route: PO, Drug form: TAB, ONCE, Dosing Weight 83.636, kg, Priority: STAT , Start date: 01/16/15 14:29:00, Stop date: 01/16/15 14:29:00 Start Date: 01/16/15 Stop Date: 01/16/15 Status: Completed meclizine 25 mg oral tablet 25 mg=1 tab, PO, TID, PRN Other-See Comments, X 10 day, # 30 tab, 0 Refill(s) Start Date: 01/16/15 Stop Date: 01/26/15 Status: Ordered Saline Flush 0.9% 10 mL, Route: IVP, Drug Form: INJ, Dosing Weight 83.636, kg, PRN, PRN Line Flush , Start date: 01/16/15 14:29:00, Duration: 30 day, Stop date: 02/15/15 14:28:00 Notes: (Same as: BD Posiflush) Start Date: 01/16/15 Stop Date: 01/17/15 Status: Discontinued Results ELECTROLYTES Most recent to 1 oldest [Reference Range]: Sodium Lvl [135-145 141 mEq/L mEq/L] (01/16/15 3:42 PM) Potassium Lvl 4.5 mEq/L [3.5-5.1 mEq/L] (01/16/15 3:42 PM) Chloride Lvl [95-109 106 mEq/L mEq/L] (01/16/15 3:42 PM) CO2 [24-32 mEq/L] 30 mEq/L (01/16/15 3:42 PM) AGAP [10.0-20.0 9.5 mEq/L mEq/L] *LOW* (01/16/15 3:42 PM) CHEM PANEL Most recent to 1 oldest [Reference Range]: Creatinine Lvl 0.8 mg/dL [0.5-1.4 mg/dL] (01/16/15 3:42 PM) eGFR 74 mL/min/1.73m2 1 *NA* (01/16/15 3:42 PM) BUN [7-22 mg/dL] 19 mg/dL (01/16/15 3:42 PM) B/C Ratio [6-25] 24 (01/16/15 3:42 PM) Glucose Lvl [70-99 120 mg/dL mg/dL] *HI* (01/16/15 3:42 PM) Total Protein 7.1 g/dL [6.4-8.4 g/dL] (01/16/15 3:42 PM) Albumin Lvl [3.5-5.0 3.4 g/dL g/dL] *LOW* (01/16/15 3:42 PM) Globulin [2.0-4.0 3.7 g/dL g/dL] (01/16/15 3:42 PM) A/G Ratio [0.7-1.6] 0.9 (01/16/15 3:42 PM) Calcium Lvl 8.3 mg/dL [8.5-10.5 mg/dL] *LOW* (01/16/15 3:42 PM) ALT [0-65 unit/L] 18 unit/L (01/16/15 3:42 PM) AST [0-37 unit/L] 16 unit/L (01/16/15 3:42 PM) Alk Phos [39-136 172 unit/L unit/L] *HI* (01/16/15 3:42 PM) Bili Total [0.2-1.3 0.3 mg/dL mg/dL] (01/16/15 3:42 PM) 1Result Comment: The eGFR is calculated using [...] from the National Kidney Disease Education Program ( NKDEP) which additionally recommends that when the eGFR is used in patients with extremes of body mass index for purposes of drug dosing, the eGFR should be mul tiplied by the estimated BMI. CARDIAC ENZYMES Most recent to 1 oldest [Reference Range]: Total CK [12-191 76 unit/L unit/L] (01/16/15 3:42 PM) CK MB [0.5-3.6 1.0 ng/mL ng/mL] (01/16/15 3:42 PM) CK MB Index 1.3 [0.0-2.5] (01/16/15 3:42 PM) Troponin-I <0.02 ng/mL [0.00-0.40 ng/mL] (01/16/15 3:42 PM) URINE AND STOOL Most recent to 1 oldest [Reference Range]: UA Turbidity [Clear] Clear (01/16/15 2:59 PM) UA Color Ltyellow *NA* (01/16/15 2:59 PM) UA pH [5.0-8.0] 6.0 (01/16/15 2:59 PM) UA Spec Grav 1.010 [<=1.030] (01/16/15 2:59 PM) UA Glucose [Negative 500 mg/dL mg/dL] *ABN* (01/16/15 2:59 PM) UA Blood [Negative] Negative (01/16/15 2:59 PM) UA Ketones [Negative Negative mg/dL mg/dL] *NA* (01/16/15 2:59 PM) UA Protein [Negative Negative mg/dL mg/dL] (01/16/15 2:59 PM) UA Urobilinogen <=1.0 mg/dL [0.1-1.0 mg/dL] *NA* (01/16/15 2:59 PM) UA Bili [Negative] Negative *NA* (01/16/15 2:59 PM) UA Leuk Est Small [Negative] *ABN* (01/16/15 2:59 PM) UA Nitrite Negative [Negative] (01/16/15 2:59 PM) UA WBC [0-5 /HPF] 4 /HPF (01/16/15 2:59 PM) UA RBC [0-2 /HPF] <1 /HPF (01/16/15 2:59 PM) UA Bacteria [None Occasional /HPF Seen /HPF] *NA* (01/16/15 2:59 PM) UA Sq Epi [Few /LPF] Occasional /LPF *NA* (01/16/15 2:59 PM) HEMATOLOGY Most recent to 1 oldest [Reference Range]: WBC [3.7-10.4 K/CMM] 7.5 K/CMM (01/16/15 3:42 PM) RBC [4.20-5.40 4.06 M/CMM M/CMM] *LOW* (01/16/15 3:42 PM) Hgb [12.0-16.0 g/dL] 13.3 g/dL (01/16/15 3:42 PM) Hct [36.0-48.0 %] 39.0 % (01/16/15 3:42 PM) MCV [80.0-98.0 fL] 96.1 fL (01/16/15 3:42 PM) MCH [27.0-31.0 pg] 32.8 pg *HI* (01/16/15 3:42 PM) MCHC [32.0-36.0 34.1 g/dL g/dL] (01/16/15 3:42 PM) RDW [11.5-14.5 %] 13.0 % (01/16/15 3:42 PM) Platelet [133-450 215 K/CMM K/CMM] (01/16/15 3:42 PM) MPV [7.4-10.4 fL] 8.4 fL (01/16/15 3:42 PM) Segs [45.0-75.0 %] 65.6 % (01/16/15 3:42 PM) Lymphocytes 21.9 % [20.0-40.0 %] (01/16/15 3:42 PM) Monocytes [2.0-12.0 8.8 % %] (01/16/15 3:42 PM) Eosinophils [0.0-4.0 2.9 % %] (01/16/15 3:42 PM) Basophils [0.0-1.0 0.8 % %] (01/16/15 3:42 PM) Segs-Bands # 4.9 K/CMM [1.5-8.1 K/CMM] (01/16/15 3:42 PM) Lymphocytes # 1.6 K/CMM [1.0-5.5 K/CMM] (01/16/15 3:42 PM) Monocytes # [0.0-0.8 0.7 K/CMM K/CMM] (01/16/15 3:42 PM) Eosinophils # 0.2 K/CMM [0.0-0.5 K/CMM] (01/16/15 3:42 PM) Basophils # [0.0-0.2 0.1 K/CMM K/CMM] (01/16/15 3:42 PM) PT [12.0-14.7 12.6 seconds seconds] (01/16/15 3:42 PM) INR [0.85-1.17] 0.94 (01/16/15 3:42 PM) PTT [22.9-35.8 26.4 seconds seconds] (01/16/15 3:42 PM) Immunizations No data available for this section Procedures Procedure Date Related Diagnosis Body Site Bilateral tubal ligation Social History Social History Type Response Smoking Status Never smoker; Exposure to Tobacco Smoke None; Cigarette Smoking Last 365 Days No; Reg Smoking Cessation Counseling No Assessment and Plan No data available for this section
--- OUTSIDE RECORDS SUMMARY | 2018-09-11 02:51 | XMS REPORT | Summary of Care ---
Author Author [facility] Organization [facility] Address Unknown Phone Unavailable Encounter HQ Nandor_yesenia(FIN) [id number] Date(s): 03/23/15 - 03/23/15 [facility] [address] [place] [address]- [phone] Discharge Disposition: Home Attending Physician: Glen West MD Admitting Physician: Glen West MD Vital Signs No data available for [...]
--- OUTSIDE RECORDS SUMMARY | 2018-09-11 02:51 | XMS REPORT | Summary of Care ---
Author Author [facility] Organization [facility] Address Unknown Phone Unavailable Encounter GRECIA Weaver(MONICA) [id number] Date(s): 12/20/14 - 12/20/14 [facility] [address] [place] [address]- Discharge Diagnosis: Accidental fall Discharge Diagnosis: Dizziness Discharge Diagnosis: Acute head injury Discharge Disposition: Home Attending Physician: Jeremy Franco MD Vital Signs Most recent to 1 2 oldest [Reference Range]: Height 157.48 cm (12/20/14 6:04 PM) Most recent to 1 2 oldest [Reference Range]: Temperature Oral 98.1 DegF 98.2 DegF [96.4-99.1 DegF] (12/20/14 10:35 PM) (12/20/14 6:04 PM) Most recent to 1 2 oldest [Reference Range]: Blood Pressure 150/91 mmHg 154/85 mmHg [90-140/60-90 mmHg] *HI* *HI* (12/20/14 10:35 PM) (12/20/14 6:04 PM) Most recent to 1 2 oldest [Reference Range]: Respiratory Rate 18 BRMIN 18 BRMIN [14-20 BRMIN] (12/20/14 10:35 PM) (12/20/14 6:04 PM) Most recent to 1 2 oldest [Reference Range]: Peripheral Pulse 65 bpm 77 bpm Rate [60-100 bpm] (12/20/14 10:35 PM) (12/20/14 6:04 PM) Most recent to 1 2 oldest [Reference Range]: Weight 76.364 kg (12/20/14 6:04 PM) Most recent to 1 2 oldest [Reference Range]: Body Mass Index 30.79 m2 (12/20/14 6:04 PM) Problem List Condition Effective Dates Status Health Status Informant Diabetes Resolved mellitus(Confirmed) High blood Resolved pressure(Confirmed) Allergies, Adverse Reactions, Alerts Substance Reaction Severity Status Food Eggs Active Vicodin Active Medications Motrin 800 mg oral tablet 800 mg=1 tab, PO, Q8H, PRN Pain, Take with food, # 30 tab, 0 Refill(s) Special Instructions: Take with food Start Date: 12/20/14 Status: Ordered Results ELECTROLYTES Most recent to 1 oldest [Reference Range]: Sodium Lvl [135-145 138 mEq/L mEq/L] (12/20/14 8:52 PM) Potassium Lvl 3.9 mEq/L [3.5-5.1 mEq/L] (12/20/14 8:52 PM) Chloride Lvl [95-109 102 mEq/L mEq/L] (12/20/14 8:52 PM) CO2 [24-32 mEq/L] 31 mEq/L (12/20/14 8:52 PM) AGAP [10.0-20.0 8.9 mEq/L mEq/L] *LOW* (12/20/14 8:52 PM) CHEM PANEL Most recent to 1 oldest [Reference Range]: Creatinine Lvl 0.8 mg/dL [0.5-1.4 mg/dL] (12/20/14 8:52 PM) eGFR 74 mL/min/1.73m2 1 *NA* (12/20/14 8:52 PM) BUN [7-22 mg/dL] 15 mg/dL (12/20/14 8:52 PM) B/C Ratio [6-25] 19 (12/20/14 8:52 PM) Glucose Lvl [70-99 181 mg/dL mg/dL] *HI* (12/20/14 8:52 PM) Total Protein 7.0 g/dL [6.4-8.4 g/dL] (12/20/14 8:52 PM) Albumin Lvl [3.5-5.0 3.6 g/dL g/dL] (12/20/14 8:52 PM) Globulin [2.0-4.0 3.4 g/dL g/dL] (12/20/14 8:52 PM) A/G Ratio [0.7-1.6] 1.1 (12/20/14 8:52 PM) Calcium Lvl 8.5 mg/dL [8.5-10.5 mg/dL] (12/20/14 8:52 PM) ALT [0-65 unit/L] 21 unit/L (12/20/14 8:52 PM) AST [0-37 unit/L] 16 unit/L (12/20/14 8:52 PM) Alk Phos [39-136 177 unit/L unit/L] *HI* (12/20/14 8:52 PM) Bili Total [0.2-1.3 0.5 mg/dL mg/dL] (12/20/14 8:52 PM) 1Result Comment: The eGFR is calculated [...] Most recent to 1 oldest [Reference Range]: Troponin-I <0.02 ng/mL [0.00-0.40 ng/mL] (12/20/14 8:52 PM) HEMATOLOGY Most recent to 1 oldest [Reference Range]: WBC [3.7-10.4 K/CMM] 7.7 K/CMM (12/20/14 8:52 PM) RBC [4.20-5.40 3.91 M/CMM M/CMM] *LOW* (12/20/14 8:52 PM) Hgb [12.0-16.0 g/dL] 12.3 g/dL (12/20/14 8:52 PM) Hct [36.0-48.0 %] 36.9 % (12/20/14 8:52 PM) MCV [80.0-98.0 fL] 94.4 fL (12/20/14 8:52 PM) MCH [27.0-31.0 pg] 31.6 pg *HI* (12/20/14 8:52 PM) MCHC [32.0-36.0 33.4 g/dL g/dL] (12/20/14 8:52 PM) RDW [11.5-14.5 %] 13.2 % (12/20/14 8:52 PM) Platelet [133-450 204 K/CMM K/CMM] (12/20/14 8:52 PM) MPV [7.4-10.4 fL] 7.9 fL (12/20/14 8:52 PM) Segs [45.0-75.0 %] 68.2 % (12/20/14 8:52 PM) Lymphocytes 21.1 % [20.0-40.0 %] (12/20/14 8:52 PM) Monocytes [2.0-12.0 8.4 % %] (12/20/14 8:52 PM) Eosinophils [0.0-4.0 1.8 % %] (12/20/14 8:52 PM) Basophils [0.0-1.0 0.5 % %] (12/20/14 8:52 PM) Segs-Bands # 5.3 K/CMM [1.5-8.1 K/CMM] (12/20/14 8:52 PM) Lymphocytes # 1.6 K/CMM [1.0-5.5 K/CMM] (12/20/14 8:52 PM) Monocytes # [0.0-0.8 0.6 K/CMM K/CMM] (12/20/14 8:52 PM) Eosinophils # 0.1 K/CMM [0.0-0.5 K/CMM] (12/20/14 8:52 PM) Immunizations No data available for this section Procedures Procedure Date Related Diagnosis Body Site Bilateral tubal ligation Social History Social History Type Response Smoking Status Never smoker; Exposure to Tobacco Smoke None; Cigarette Smoking Last 365 Days No; Reg Smoking Cessation Counseling No Assessment and Plan No data available for this section
--- OUTSIDE RECORDS SUMMARY | 2018-09-11 02:51 | XMS REPORT | CCD ---
Author Author Auto Generated Organization [facility] Address Unknown Phone Unavailable Care Team Providers Care Patrol Conductor Name Role Phone Geoffrey Celis CP Allergies, Adverse Reactions, Alerts Substance Reaction Status NKDA Active Problem List Condition Effective Dates Status Diabetes mellitus Resolved High blood pressure Resolved Medications Medication Instructions Start Date End Date Status Sodium Chloride 0.9% 1,000 mL, Rate: 75 ml/hr, Infuse 02/27/2013 02/27/2013 Completed IV 1,000 mL over: 13.3 hr, Route: IV, Dosing Weight 79.091 kg, Total Volume: 1,000, Priority: STAT, Start date: 02/27/13 10:32:00, Duration: 1 doses or times, Stop date: 02/27/13 23:49:00 acetaminophen 650 mg, Route: PO, Drug form: TAB, 02/27/2013 02/27/2013 Completed ONCE, Dosing Weight 79.091, kg, Priority: STAT, Start date: 02/27/13 10:32:00, Stop date: 02/27/13 10:32:00 Vital Signs Most recent to oldest [Reference Range]: 1 2 3 Height 162.56 cm (02/27/2013 10:09:00) Temperature Oral [96.4-99.1 DegF] 97.9 DegF (02/27/2013 12:44:00) 97.8 DegF (02/27/2013 10:09:00) Systolic Blood Pressure [90-140 mmHg] 139 mmHg (02/27/2013 12:44:00) 159 mmHg *HI* (02/27/2013 10:09:00) Diastolic Blood Pressure [60-90 mmHg] 65 mmHg (02/27/2013 12:44:00) 76 mmHg (02/27/2013 10:09:00) Respiratory Rate [14-20 BRMIN] 20 BRMIN (02/27/2013 12:44:00) 20 BRMIN (02/27/2013 12:31:00) 18 BRMIN (02/27/2013 11:22:00) Peripheral Pulse Rate [60-100 bpm] 87 bpm (02/27/2013 10:09:00) Weight 79.091 kg (02/27/2013 10:09:00) Results CHEMISTRY Most recent to oldest [Reference Range]: 1 Sodium Lvl [135-145 mEq/L] 143 mEq/L (02/27/2013 11:15:00) Potassium Lvl [3.5-5.1 mEq/L] 4.6 mEq/L (02/27/2013 11:15:00) Chloride Lvl [95-109 mEq/L] 107 mEq/L (02/27/2013 11:15:00) CO2 [24-32 mEq/L] 31 mEq/L (02/27/2013 11:15:00) AGAP [10.0-20.0 mEq/L] 9.6 mEq/L *LOW* (02/27/2013 11:15:00) Creatinine Lvl [0.5-1.4 mg/dL] 0.7 mg/dL (02/27/2013 11:15:00) eGFR 88 mL/min/1.73m2 1 *NA* (02/27/2013:15:00) BUN [7-22 mg/dL] 22 mg/dL (02/27/2013 11:15:00) B/C Ratio [6-25] 31 *HI* (02/27/2013 11:15:00) Glucose Lvl [70-99 mg/dL] 122 mg/dL 2 *HI* (02/27/2013 11:15:00) Total Protein [6.4-8.4 g/dL] 7.1 g/dL (02/27/2013 11:15:00) Albumin Lvl [3.5-5.0 g/dL] 3.5 g/dL (02/27/2013 11:15:00) Globulin [2.0-4.0 g/dL] 3.6 g/dL (02/27/2013 11:15:00) A/G Ratio [0.7-1.6] 1.0 (02/27/2013 11:15:00) Calcium Lvl [8.5-10.5 mg/dL] 8.5 mg/dL (02/27/2013 11:15:00) ALT [0-65 unit/L] 17 unit/L (02/27/2013:15:00) AST [0-37 unit/L] 16 unit/L (02/27/2013:15:00) Alk Phos [39-136 unit/L] 112 unit/L (02/27/2013:15:00) Bili Total [0.2-1.3 mg/dL] 0.4 mg/dL (02/27/2013:15:00) 1Result Comment: The eGFR is calculated using [...] be mul tiplied by the estimated BMI. 2Interpretive Data: Adult reference range values reflect the clinical guidelines of the [place] [employer]. HEMATOLOGY Most recent to oldest [Reference Range]: 1 WBC [3.7-10.4 K/CMM] 6.4 K/CMM (02/27/2013:15:00) RBC [4.20-5.40 M/CMM] 2.83 M/CMM *LOW* (02/27/2013:15:00) Hgb [12.0-16.0 g/dL] 10.9 g/dL *LOW* (02/27/2013:15:00) Hct [36.0-48.0 %] 33.5 % *LOW* (02/27/2013:15:) MCV [81.0-99.0 fL] 118.2 fL *HI* (02/27/2013 11:15:00) MCH [27.0-31.0 pg] 38.7 pg *HI* (02/27/2013:15:00) MCHC [32.0-36.0 g/dL] 32.7 g/dL (02/27/2013:15:00) RDW [11.5-14.5 %] 17.9 % *HI* (02/27/2013:15:00) Platelet [133-450 K/CMM] 245 K/CMM (02/27/2013 11:15:00) MPV [7.4-10.4 fL] 7.2 fL *LOW* (02/27/2013 11:15:00) Segs [45.0-75.0 %] 76.8 % *HI* (02/27/2013:15:00) Lymphocytes [20.0-40.0 %] 15.1 % *LOW* (02/27/2013:15:00) Monocytes [2.0-12.0 %] 5.7 % (02/27/2013 11:15:00) Eosinophils [0.0-4.0 %] 1.7 % (02/27/2013 11:15:00) Basophils [0.0-1.0 %] 0.7 % (02/27/2013:15:00) Segs-Bands # [1.5-8.1 K/CMM] 4.9 K/CMM (02/27/2013:15:00) Lymphocytes # [1.0-5.5 K/CMM] 1.0 K/CMM (02/27/2013 11:15:00) Monocytes # [0.0-0.8 K/CMM] 0.4 K/CMM (02/27/2013 11:15:00) Eosinophils # [0.0-0.5 K/CMM] 0.1 K/CMM (02/27/2013 11:15:00) Basophils # [0.0-0.2 K/CMM] 0.0 K/CMM (02/27/2013 11:15:00) Macrocyte [None Seen] 2+ *ABN* (02/27/2013:15:00)
--- OUTSIDE RECORDS SUMMARY | 2018-09-11 02:52 | XMS REPORT ---
Author Author [facility] Address Unknown Phone Unavailable Care Team Providers Care On Site Coordinator Name Role Phone DANITZA EVARISTO Unavailable Unavailable Problems This patient has no known problems. Allergies, Adverse Reactions, Alerts This patient has no known allergies or adverse reactions. Medications This patient has no known medications. Results Test Description Test Time Test Comments Text Results Atomic Results Result Comments MAMMOGRAPHY DIGITAL SCR BILAT 2018-06-17 10:38:00 [place] [address] Patient Name: LAKSHMI DOBBINS MR #: [id number] : 1940 Age/Sex: 77/F Req #: [id number] Adm Physician: Ordered by: EVARISTO BOSCH Report #: [id number] Location: MAMMO Room/Bed: Procedure: [id number] MG/MAMMOGRAPHY DIGITAL SCR BILAT Exam Date: 06/17/18 Exam Time: 1000 REPORT STATUS: Signed #[id number] - [id number] #BILATERAL DIGITAL SCREENING MAMMOGRAM WITH CAD: 06/17/2018 CLINICAL: Routine screening. Comparison to study of 03/23/2015 from [facility]. Current study contains 5 films. There are scattered fibroglandular elements in both breasts. Current study was also evaluated with a Computer Aided Detection (CAD) system. There are benign calcifications in the left breast with some representing fat necrosis. Scattered calcifications in the right breast. Density in the axillary region of the left breast repreesents post operative scar and is unchanged. No significant masses, calcifications, or other findings are seen in either breast. IMPRESSION: BENIGN There is no mammographic evidence of malignancy. A 1 year screening mammogram is recommended. The patient will be notified by letter of the results. Nupur Marcus Jr., D.O. cw/:07/06/2018 08:26:11 Fuel Operator: Christina BEEBE)(Prema), [facility] letter sent: Compared to Prior B9 Mammogram BI-RADS: 2 Benign Dictated By: NUPUR MARCUS DO 5 Transcribed By: HALEY on 07/06/18825 COPY TO: EVARISTO BOSCH
--- OUTSIDE RECORDS SUMMARY | 2018-09-11 02:52 | XMS REPORT | Summary of Care ---
Author Author [facility] Organization [facility] Address Unknown Phone Unavailable Encounter GRECIA Weaver(MONICA) [id number] Date(s): 09/09/16 - 09/12/16 [facility] [address] [place] [address]- [phone] Discharge Disposition: Home or Self Care Attending Physician: Jf Mcintyre MD Admitting Physician: Jf Mcintyre MD Referring Physician: Jf Mcintyre MD Vital Signs 1 2 3 Most recent to oldest [Reference Range]: 157.48 cm (09/09/16 5:16 PM) 157.48 cm (09/03/16 7:58 AM) 157.48 cm (09/01/16 11:16 AM) Height 98.3 DegF (09/12/16 11:09 AM) 98.1 DegF (09/12/16 7:07 AM) 98 DegF (09/12/16 4:54 AM) Temperature Oral [96.4-99.1 DegF] 146/80 mmHg 1 *HI* (09/12/16 11:09 AM) 126/73 mmHg (09/12/16 7:07 AM) 113/73 mmHg (09/12/16 4:54 AM) Blood Pressure [90-140/60-90 mmHg] 20 BRMIN (09/12/16 11:09 AM) 20 BRMIN (09/12/16 7:07 AM) 18 BRMIN (09/12/16 4:54 AM) Respiratory Rate [14-20 BRMIN] 93 bpm (09/12/16 11:09 AM) 87 bpm (09/12/16 7:07 AM) 74 bpm (09/12/16 4:54 AM) Peripheral Pulse Rate [60-100 bpm] 73.636 kg (09/09/16 5:16 PM) 74.545 kg (09/03/16 7:58 AM) 73.636 kg (09/01/16 11:16 AM) Weight 29.69 m2 (09/09/16 5:16 PM) 30.06 m2 (09/03/16 7:58 AM) 29.69 m2 (09/01/16 11:16 AM) Body Mass Index 1Result Comment: nurse was notified of the patient's vital signs Problem List Condition Effective Dates Status Health Status Informant Diabetes Resolved mellitus(Confirmed) Circulation Active problem(Confirmed) Fracture(Confirmed) Active [place] (hard of Resolved hearing)(Confirmed) High blood Resolved pressure(Confirmed) OAB (overactive Active bladder)(Confirmed) Hypercholesteremia(C Resolved onfirmed) Cataract(Confirmed) Active Breast cancer in Resolved female(Confirmed)1 Neuropathy(Confirmed Active ) Tremor of right Active hand.(Confirmed) TIA (transient Resolved ischemic attack)(Confirmed) Varicose vein of Active leg(Confirmed) 1left breast Allergies, Adverse Reactions, Alerts Substance Reaction Severity Status Food Eggs Active Vicodin Active Medications acetaminophen 1,000 mg, 2 tab, Route: PO, Drug form: TAB, Q6Hnow, Dosing Weight 74.545, kg, St art date: 09/09/16 15:00:00 CDT, Duration: 30 day, Stop date: 10/09/16 9:00:00 C DT Notes: Max acetaminophen 4000 mg/day (4 gm/day). (Same as: Tylenol Extra Streng th) Start Date: 09/09/16 Stop Date: 09/12/16 Status: Discontinued acetaminophen 1,000 mg, 100 mL, Route: IVPB, Drug form: INJ, Q6Hnow, Dosing Weight 74.545, kg, Start date: 09/09/16 12:00:00 CDT, Duration: 30 day, Stop date: 10/09/16 6:00:00 CDT Notes: Infuse over 15 minutesDo not exceed 4gm/day of acetaminophen MEDICAT ION WASTE Product Size: 1000 mgProduct Wasted: ___ mg Start Date: 09/09/16 Stop Date: 09/09/16 Status: Discontinued Al hydroxide/Mg hydroxide/simethicone 200 mg-200 mg-20 mg/5 mL oral suspension 30 mL, Route: PO, Drug Form: SUSP, Dosing Weight 74.545, kg, Q4H, PRN Indigestio n, Start date: 09/09/16 14:33:00 CDT, Duration: 30 day, Stop date: 10/09/16 14:3 2:00 CDT Notes: (aluminum hydroxide-magnesium hyd- simethicone [id number]/5ml YANA) (Sa me as: Maalox Plus Extra Strength) Start Date: 09/09/16 Stop Date: 09/12/16 Status: Discontinued ANES fentaNYL 25 microgram, 0.5 mL, Route: IVP, Drug form: INJ, Q5Min, Dosing Weight 74.545, k g, PRN Pain Score 4-6, Priority: Routine, Start date: 09/09/16 11:21:00 CDT, Dur ation: 4 doses or times, Stop date: Limited # of times Notes: (Same as: Sublimaze) Preservative free. Start Date: 09/09/16 Stop Date: 09/09/16 Status: Discontinued ANES flumazenil 0.2 mg, 2 mL, Route: IVP, Drug form: INJ, PRN, Dosing Weight 74.545, kg, PRN Wolfgang zodiazepine Reversal, Initial dose, Start date: 09/09/16 11:21:00 CDT, Duration: 30 day, Stop date: 10/09/16 11:20:00 CDT Notes: (Same as: Romazicon) Start Date: 09/09/16 Stop Date: 09/09/16 Status: Discontinued ANES morphine Sulfate 2 mg, 1 mL, Route: IVP, Drug form: INJ, Q5Min, Dosing Weight 74.545, kg, PRN Sofya n Score 4-6, Start date: 09/09/16 11:21:00 CDT, Duration: 5 doses or times, Stop date: 09/09/16 23:00:00 CDT Notes: (Same as:MORPhine Sulfate) Start Date: 09/09/16 Stop Date: 09/09/16 Status: Discontinued ANES naloxone 0.4 mg, 1 mL, Route: IVP, Drug form: INJ, Q2MIN, Dosing Weight 74.545, kg, PRN N arcotic Reversal, Start date: 09/09/16 11:21:00 CDT, Duration: 8 doses or times, Stop date: Limited # of times Notes: Same as Narcan Start Date: 09/09/16 Stop Date: 09/09/16 Status: Discontinued ANES ondansetron 4 mg, 2 mL, Route: IVP, Drug form: INJ, ONCE, Dosing Weight 74.545, kg, PRN Naus ea & Vomiting, Start date: 09/09/16 11:21:00 CDT Notes: (Same as: Zofran) MEDICATION WASTE Product Size: 4 mgProduct Was mita: ___ mg Start Date: 09/09/16 Stop Date: 09/09/16 Status: Discontinued aspirin 325 mg tablet, enteric coated 325 mg, 1 tab, Route: PO, Drug form: ECTAB, Q12H, Dosing Weight 74.545, kg, Star t date: 09/09/16 21:00:00 CDT, Duration: 30 day, Stop date: 10/09/16 9:00:00 CDT Notes: (Do Not Crush) Do not crush or chew. Start Date: 09/09/16 Stop Date: 09/12/16 Status: Discontinued aspirin 325 mg tablet, enteric coated 325 mg=1 tab, PO, Q12H, # 30 tab, 0 Refill(s) Start Date: 09/11/16 Status: Ordered Bactroban 2% nasal ointment w/applicator 1 appl, Route: NASAL, Q12H, Drug form: OINT, Start date: 09/10/16 9:00:00 CDT, D uration: 5 day, Stop date: 09/14/16 21:00:00 CDT, MRSA decolonization Start Date: 09/10/16 Stop Date: 09/12/16 Status: Discontinued BD Normal Saline Flush 10 mL, Route: IVP, Drug Form: INJ, PRN, PRN Line Flush, Start date: 09/09/16 15: 13:00 CDT, Duration: 30 day, Stop date: 10/09/16 15:12:00 CDT Notes: (Same as: BD Posiflush) Start Date: 09/09/16 Stop Date: 09/12/16 Status: Discontinued bisacodyl 10 mg, 1 supp, Route: MS, Drug form: SUPP, Daily, Dosing Weight 74.545, kg, PRN Constipation, Start date: 09/09/16 14:33:00 CDT, Duration: 30 day, Stop date: 14:32:00 CDT Notes: (Same As: Dulcolax, Bisco-Lax) Start Date: 09/09/16 Stop Date: 09/12/16 Status: Discontinued Caltrate 600 + D oral tablet 1 tab, PO, BID, 0 Refill(s) Start Date: 09/01/16 Status: Ordered CeleBREX 400 mg, Route: PO, Drug form: CAP, ONCE, Dosing Weight 74.545, kg, Start date: 0 09/09/16 11:18:00 CDT, Stop date: 09/09/16 11:18:00 CDT Start Date: 09/09/16 Stop Date: 09/09/16 Status: Completed CeleBREX 200 mg, 1 cap, Route: PO, Drug form: CAP, Q12H, Dosing Weight 74.545, kg, Start date: 09/09/16 21:00:00 CDT, Stop date: 10/09/16 9:00:00 CDT Notes: NSAID. Please check indication. Not for seizure. (Same As: CeleBREX) Start Date: 09/09/16 Stop Date: 09/12/16 Status: Discontinued celecoxib 200 mg, 1 cap, Route: PO, Drug form: CAP, [id number], Dosing Weight 74.545, kg, Sta rt date: 09/09/16 15:00:00 CDT, Duration: 30 day, Stop date: 10/09/16 3:00:00 CD T Notes: NSAID. Please check indication. Not for seizure. (Same As: CeleBREX) Start Date: 09/09/16 Stop Date: 09/09/16 Status: Discontinued celecoxib 200 mg, 1 cap, Route: PO, Drug form: CAP, [id number], Dosing Weight 74.545, kg, Sta rt date: 09/09/16 12:00:00 CDT, Duration: 30 day, Stop date: 10/09/16 0:00:00 CD T Notes: NSAID. Please check indication. Not for seizure. (Same As: CeleBREX) Start Date: 09/09/16 Stop Date: 09/09/16 Status: Discontinued dextrose 10% in water 1,000 mL 1,000 mL, Rate: 75 ml/hr, Infuse over: 13.3 hr, Route: IV, Dosing Weight 73.636 kg, Total Volume: 1,000, Priority: STAT, Start date: 09/11/16 11:17:00 CDT, Dura tion: 30 day, Stop date: 10/11/16 11:16:00 CDT Start Date: 09/11/16 Stop Date: 09/12/16 Status: Discontinued Dextrose 50% in Water IV 12.5 gm, 25 mL, Route: IVP, Drug Form: INJ, PRN, PRN Blood Glucose Results, Star t date: 09/09/16 17:00:00 CDT, Duration: 30 day, Stop date: 10/09/16 16:59:00 CD T Start Date: 09/09/16 Stop Date: 09/12/16 Status: Discontinued Dextrose 50% in Water IV 50 mL, Route: IVP, Start date: 09/09/16 16:59:00 CDT, Duration: 30 day, Stop efrain e: 10/09/16 16:58:00 CDT, PRN Blood Glucose Results Start Date: 09/09/16 Stop Date: 09/12/16 Status: Discontinued diphenhydrAMINE 12.5 mg, 5 mL, Route: PO, Drug form: LIQ, Q6H, Dosing Weight 74.545, kg, PRN Itc elia, Start date: 09/09/16 14:33:00 CDT, Duration: 30 day, Stop date: 10/09/16 1 4:32:00 CDT Notes: (Same as: Benadryl) Start Date: 09/09/16 Stop Date: 09/12/16 Status: Discontinued docusate 100 mg, 1 cap, Route: PO, Drug form: CAP, BID, Dosing Weight 74.545, kg, Start d ate: 09/09/16 17:00:00 CDT, Duration: 30 day, Stop date: 10/09/16 9:00:00 CDT Notes: (Same as: Colace) (Do Not Crush) Start Date: 09/09/16 Stop Date: 09/12/16 Status: Discontinued fentaNYL (ANES) Route: IV, Drug form: INJ, ONCE, Stop date: 09/09/16 13:03:00 CDT Start Date: 09/09/16 Stop Date: 09/09/16 Status: Completed gabapentin 300 mg, 1 cap, Route: PO, Drug form: CAP, Q8Hnow, Dosing Weight 74.545, kg, Star t date: 09/09/16 15:00:00 CDT, Duration: 30 day, Stop date: 10/09/16 7:00:00 CDT Notes: (Same as: Neurontin) Start Date: 09/09/16 Stop Date: 09/09/16 Status: Discontinued gabapentin 100 mg, 1 cap, Route: PO, Drug form: CAP, Q8Hnow, Dosing Weight 74.545, kg, Star t date: 09/09/16 12:00:00 CDT, Duration: 30 day, Stop date: 10/09/16 4:00:00 CDT Notes: (Same as: Neurontin) Start Date: 09/09/16 Stop Date: 09/09/16 Status: Discontinued gabapentin 300 mg oral capsule 300 mg, 1 cap, Route: PO, Drug form: CAP, Q8H, Dosing Weight 74.545, kg, Start d ate: 09/09/16 13:00:00 CDT, Duration: 30 day, Stop date: 10/09/16 8:00:00 CDT Notes: (Same as: Neurontin) Start Date: 09/09/16 Stop Date: 09/12/16 Status: Discontinued glimepiride 4 mg, 1 tab, Route: PO, Drug form: TAB, BID, Dosing Weight 74.545, kg, Start efrain e: 09/09/16 17:00:00 CDT, Duration: 30 day, Stop date: 10/09/16 9:00:00 CDT Notes: Non-Formulary(Same as: Amaryl) Start Date: 09/09/16 Stop Date: 09/11/16 Status: Discontinued glimepiride 4 mg oral tablet 4 mg=1 tab, PO, BID, 0 Refill(s) Start Date: 09/01/16 Stop Date: 09/11/16 Status: Discontinued glucagon 1 mg, Route: IV, Drug form: PDR/INJ, PRN, PRN Blood Glucose Results, Start date: 09/09/16 17:01:00 CDT, Duration: 30 day, Stop date: 10/09/16 17:00:00 CDT Start Date: 09/09/16 Stop Date: 09/12/16 Status: Discontinued insulin aspart 6 unit, 0.06 mL, Route: SUB-Q, Drug form: SOLN, Before Meals & Bedtime, PRN Blood Glucose Results, Start date: 09/09/16 17:02:00 CDT, Duration: 30 day, Stop date: 10/09/16 17:01:00 CDT Notes: Roll in palms of hands gently; Do not shake vigorously. (Same as: Yoshi Cevallos)"single patient use only"WASTE: F/P - Black; E - Municipal Trash Bin Stable f or 28 days at room temperature.Expires in days from Date Start Date: 09/09/16 Stop Date: 09/11/16 Status: Discontinued insulin aspart 5 unit, 0.05 mL, Route: SUB-Q, Drug form: SOLN, Before Meals & Bedtime, PRN Blood Glucose Results, Start date: 09/09/16 17:03:00 CDT, Duration: 30 day, Stop date: 10/09/16 17:02:00 CDT Notes: Roll in palms of hands gently; Do not shake vigorously. (Same as: Yoshi Cevallos)"single patient use only"WASTE: F/P - Black; E - Municipal Trash Bin Stable f or 28 days at room temperature.Expires in days from Date Start Date: 09/09/16 Stop Date: 09/11/16 Status: Discontinued insulin aspart 4 unit, 0.04 mL, Route: SUB-Q, Drug form: SOLN, Before Meals & Bedtime, PRN Blood Glucose Results, Start date: 09/09/16 17:02:00 CDT, Duration: 30 day, Stop date: 10/09/16 17:01:00 CDT Notes: Roll in palms of hands gently; Do not shake vigorously. (Same as: Yoshi Cevallos)"single patient use only"WASTE: F/P - Black; E - Municipal Trash Bin Stable f or 28 days at room temperature.Expires in days from Date Start Date: 09/09/16 Stop Date: 09/11/16 Status: Discontinued insulin aspart 8 unit, 0.08 mL, Route: SUB-Q, Drug form: SOLN, Before Meals & Bedtime, PRN Blood Glucose Results, Start date: 09/09/16 16:59:00 CDT, Duration: 30 day, Stop date: 10/09/16 16:58:00 CDT Notes: Roll in palms of hands gently; Do not shake vigorously. (Same as: Yoshi Cevallos)"single patient use only"WASTE: F/P - Black; E - Municipal Trash Bin Stable f or 28 days at room temperature.Expires in days from Date Start Date: 09/09/16 Stop Date: 09/11/16 Status: Discontinued Lactated Ringers 1,000 mL 1,000 mL, Rate: 25 ml/hr, Infuse over: 40 hr, Route: IV, Dosing Weight 74.545 kg , Total Volume: 1,000, Start date: 09/09/16 11:20:00 CDT, Duration: 30 day, Stop date: 10/09/16 11:19:00 CDT Start Date: 09/09/16 Stop Date: 09/09/16 Status: Discontinued Lactated Ringers 1,000 mL 1,000 mL, Rate: 125 ml/hr, Infuse over: 8 hr, Route: IV, Dosing Weight 74.545 kg , Total Volume: 1,000, Start date: 09/09/16 11:21:00 CDT, Duration: 30 day, Stop date: 10/09/16 11:20:00 CDT Start Date: 09/09/16 Stop Date: 09/09/16 Status: Discontinued Lidoderm 5% topical film (patch) 1 patch, Route: TOP, Daily, Drug form: FILM, Start date: 09/09/16 15:00:00 CDT, Duration: 30 day, Stop date: 10/09/16 9:00:00 CDT Notes: Apply only once for up to 12 hours in s04-naas period (12 hours on and 12 hours off).(Same as: Lidoderm)"Remove old patch before application of new patch" Start Date: 09/09/16 Stop Date: 09/12/16 Status: Discontinued lisinopril 20 mg, 1 tab, Route: PO, Drug form: TAB, Daily, Dosing Weight 74.545, kg, Start date: 09/10/16 9:00:00 CDT, Duration: 30 day, Stop date: 10/09/16 9:00:00 CDT Notes: (Same as: Prinivil, Zestril) Start Date: 09/10/16 Stop Date: 09/12/16 Status: Discontinued lisinopril 20 mg oral tablet 20 mg=1 tab, PO, Daily, # 30 tab, 0 Refill(s) Start Date: 09/01/16 Status: Ordered LR 1000 mL INJ (ANES) Route: IV, Total Volume: 1,000, Start date: 09/09/16 11:55:00 CDT, Stop date: 12:55:00 CDT Start Date: 09/09/16 Stop Date: 09/09/16 Status: Completed metFORMIN 1000 mg oral tablet 1,000 mg=1 tab, PO, BID-Meals, # 30 tab, 0 Refill(s) Start Date: 09/01/16 Status: Ordered metFORMIN 1000 mg oral tablet 1,000 mg, 2 tab, Route: PO, Drug form: TAB, BID-Meals, Dosing Weight 74.545, kg, Start date: 09/09/16 17:00:00 CDT, Duration: 30 day, Stop date: 10/09/16 8:00:00 CDT Notes: (Same as: Glucophage) Take with meal Start Date: 09/09/16 Stop Date: 09/11/16 Status: Discontinued methocarbamol 1,000 mg, 2 tab, Route: PO, Drug form: TAB, Q8H, Dosing Weight 74.545, kg, PRN M uscle Spasms, Start date: 09/09/16 14:33:00 CDT, Duration: 30 day, Stop date: 14:32:00 CDT Notes: (Same as:Robaxin) Start Date: 09/09/16 Stop Date: 09/12/16 Status: Discontinued morphine Sulfate 2 mg, 1 mL, Route: IVP, Drug form: INJ, Q4H, Dosing Weight 74.545, kg, PRN Pain Score 7-10, Start date: 09/09/16 14:33:00 CDT, Duration: 30 day, Stop date: 09/29 06/17 14:32:00 CDT Notes: (Same as:MORPhine Sulfate) Start Date: 09/09/16 Stop Date: 09/12/16 Status: Discontinued morphine Sulfate 2 mg, 1 mL, Route: IVP, Drug form: INJ, Q4H, Dosing Weight 74.545, kg, PRN Pain Score 7-10, Start date: 09/09/16 11:20:00 CDT, Duration: 30 day, Stop date: 09/29 06/17 11:19:00 CDT Notes: (Same as:MORPhine Sulfate) Start Date: 09/09/16 Stop Date: 09/09/16 Status: Discontinued Orion 5/325 oral tablet 1 tab, PO, Q4-6H, PRN, # 30 tab, 0 Refill(s) Start Date: 09/02/16 Stop Date: 09/11/16 Status: Discontinued ondansetron 4 mg, 2 mL, Route: IVP, Drug form: INJ, Q8H, Dosing Weight 74.545, kg, PRN Nause a & Vomiting, Start date: 09/09/16 14:33:00 CDT, Duration: 30 day, Stop date: 10/09/16 14:32:00 CDT Notes: (Same as: Speedy) MEDICATION WASTE Product Size: 4 mgProduct Was mita: ___ mg Start Date: 09/09/16 Stop Date: 09/12/16 Status: Discontinued ondansetron 4 mg, 2 mL, Route: IVP, Drug form: INJ, Q8H, Dosing Weight 74.545, kg, PRN Nause a & Vomiting, Start date: 09/09/16 11:20:00 CDT, Duration: 30 day, Stop date: 10/09/16 11:19:00 CDT Notes: (Same as: Speedy) MEDICATION WASTE Product Size: 4 mgProduct Was mita: ___ mg Start Date: 09/09/16 Stop Date: 09/09/16 Status: Discontinued ondansetron (ANES) Route: IV, Drug form: INJ, ONCE, Stop date: 09/09/16 12:43:00 CDT Start Date: 09/09/16 Stop Date: 09/09/16 Status: Completed oxyCODONE 5 mg immediate release 10 mg, 2 tab, Route: PO, Drug form: TAB, Q4H, Dosing Weight 74.545, kg, PRN Pain Score 7-10, Start date: 09/09/16 14:33:00 CDT, Duration: 30 day, Stop date: 04/17 14:32:00 CDT Notes: (Same as: Roxicodone) Start Date: 09/09/16 Stop Date: 09/12/16 Status: Discontinued oxyCODONE 5 mg immediate release 5 mg, 1 tab, Route: PO, Drug form: TAB, Q4H, Dosing Weight 74.545, kg, PRN Pain Score 4-6, Start date: 09/09/16 14:33:00 CDT, Duration: 30 day, Stop date: 10/09 14:32:00 CDT Notes: (Same as: Roxicodone) Start Date: 09/09/16 Stop Date: 09/12/16 Status: Discontinued oxyCODONE 5 mg immediate release 5 mg, 1 tab, Route: PO, Drug form: TAB, Q4H, Dosing Weight 74.545, kg, PRN Pain Score 4-6, Start date: 09/09/16 11:20:00 CDT, Duration: 30 day, Stop date: 10/09 11:19:00 CDT Notes: (Same as: Roxicodone) Start Date: 09/09/16 Stop Date: 09/09/16 Status: Discontinued phenylephrine (ANES) Route: IV, Drug form: INJ, ONCE, Stop date: 09/09/16 13:03:00 CDT Start Date: 09/09/16 Stop Date: 09/09/16 Status: Completed propofol (ANES) Route: IV, Drug form: INJ, ONCE, Stop date: 09/09/16 12:33:00 CDT Start Date: 09/09/16 Stop Date: 09/09/16 Status: Completed remove patch 1 patch, Route: TOP, Bedtime, Drug form: ERFILM, Start date: 09/10/16 21:00:00 C DT, Duration: 30 day, Stop date: 10/09/16 21:00:00 CDT Notes: Remove patch 12 hours after application each day. Start Date: 09/10/16 Stop Date: 09/12/16 Status: Discontinued ropivacaine 0.2% 200ml CADD 200 mL Route: NERVE BLOCK, Continuous Rate: 10, ml/hr, Dosing Site: Femoral Side: Right , COMMERCIAL ROOFING ESTIMATOR dose 5 mL, COMM[employer]CIAL ROOFING ESTIMATOR dose lockout: 30 minutes, 1 Hour limit: 20 mL, Clinician Gentry ronald: 5 mL, 200, mL, Start date: 09/09/16 11:20:00 CDT, Duration: 30, day, Drug F orm: INJ, C... Notes: Same as: Naropin Start Date: 09/09/16 Stop Date: 09/12/16 Status: Discontinued sodium chloride 0.45% 1000 ml INJ 1,000 mL 1,000 mL, Rate: 75 ml/hr, Infuse over: 13.3 hr, Route: IV, Dosing Weight 74.545 kg, Total Volume: 1,000, Start date: 09/09/16 14:33:00 CDT, Duration: 30 day, St op date: 10/09/16 14:32:00 CDT Start Date: 09/09/16 Stop Date: 09/11/16 Status: Discontinued Sodium Chloride 0.9% IV 250 mL, Route: IVPB, Start date: 09/09/16 15:13:00 CDT, Duration: 30 day, Stop d ate: 10/09/16 15:12:00 CDT, PRN Line Flush Start Date: 09/09/16 Stop Date: 09/12/16 Status: Discontinued tramadol 100 mg, 2 tab, Route: PO, Drug form: TAB, Q6Hnow, Dosing Weight 74.545, kg, Star t date: 09/09/16 15:00:00 CDT, Duration: 30 day, Stop date: 10/09/16 9:00:00 CDT Notes: Not to exceed 400mg/day. (Same As: Ultram) Start Date: 09/09/16 Stop Date: 09/12/16 Status: Discontinued tramadol 100 mg oral tablet, extended release 100 mg=1 tab, PO, Daily, # 30 tab, 0 Refill(s) Start Date: 09/11/16 Status: Ordered tramadol 50 mg oral tablet 50 mg=1 tab, PO, Q4H, PRN Pain, X 10 day, # 60 tab, 0 Refill(s) Start Date: 09/12/16 Stop Date: 09/22/16 Status: Ordered trazodone 50 mg, 1 tab, Route: PO, Drug form: TAB, Bedtime, Dosing Weight 74.545, kg, PRN Insomnia, Start date: 09/09/16 14:33:00 CDT, Duration: 30 day, Stop date: 14:32:00 CDT Notes: (Same As: Melo) Start Date: 09/09/16 Stop Date: 09/12/16 Status: Discontinued trazodone 50 mg oral tablet 50 mg=1 tab, PO, Bedtime, # 30 tab, 1 Refill(s) Start Date: 09/01/16 Status: Ordered vancomycin 1.5 gm, 250 mL, Route: IVPB, Drug form: INJ, ONCE, Start date: 09/09/16 11:42:00 CDT, Stop date: 09/09/16 11:42:00 CDT Notes: TIME CRITICAL MEDICATIONSame as: Vancocin-NS (premixed)Infusion rate< 1000 mg: infuse over 1 [id number] - 1500 mg: infuse over 1.5 [id number] - 2000 mg: infuse over 2 hours> 2001 mg: infuse over 2.5 hours Start Date: 09/09/16 Stop Date: 09/11/16 Status: Completed vancomycin 1.5 gm, 250 mL, Route: IVPB, Drug form: INJ, [id number], Start date: 09/10/16 0:00: 00 CDT, Duration: 2 doses or times, Stop date: 09/10/16 12:00:00 CDT Notes: TIME CRITICAL MEDICATIONSame as: Vancocin-NS (premixed)Infusion rate< 1000 mg: infuse over 1 [id number] - 1500 mg: infuse over 1.5 [id number] - 2000 mg: infuse over 2 hours> 2001 mg: infuse over 2.5 hours Start Date: 09/10/16 Stop Date: 09/10/16 Status: Completed vancomycin (SCIP) 1,000 mg, Route: IVPB, Drug form: INJ, Q12H, Dosing Weight 74.545, kg, Time Crit ical Medication, Start date: 09/09/16 21:00:00 CDT, Duration: 2 doses or times, Stop date: 09/10/16 9:00:00 CDT, Pharmacy to adjust dose for renal function Start Date: 09/09/16 Stop Date: 09/09/16 Status: Deleted Results BLOOD BANK RESULTS 1 2 3 Most recent to oldest [Reference Range]: O POS *Unknown* (09/09/16 11:12 AM) ABO/Rh Positive 1 (09/09/16 11:12 AM) Antibody Scrn Anti-K *Unknown* (09/09/16 11:12 AM) AB Int K neg *Unknown* (09/09/16 11:12 AM) Antigen DAVI Int 1Result Comment: 09/09/2016 12:15 [id number] "Significant Findings of POS ABSC_ called to HARSHA_ at 09/09/2016 12:15_ by G T_. Read Back OK" ELECTROLYTES 1 2 3 Most recent to oldest [Reference Range]: 135 mEq/L (09/11/16 12:40 PM) 140 mEq/L (09/10/16 4:24 AM) 140 mEq/L (09/03/16 8:01 AM) Sodium Lvl [135-145 mEq/L] 4.2 mEq/L (09/11/16 12:40 PM) 3.9 mEq/L (09/10/16 4:24 AM) 3.4 mEq/L *LOW* (09/03/16 8:01 AM) Potassium Lvl [3.5-5.1 mEq/L] 102 mEq/L (09/11/16 12:40 PM) 104 mEq/L (09/10/16 4:24 AM) 101 mEq/L (09/03/16 8:01 AM) Chloride Lvl [95-109 mEq/L] 23 mEq/L *LOW* (09/11/16 12:40 PM) 25 mEq/L (09/10/16 4:24 AM) 31 mEq/L (09/03/16 8:01 AM) CO2 [24-32 mEq/L] 14.2 mEq/L (09/11/16 12:40 PM) 14.9 mEq/L (09/10/16 4:24 AM) 11.4 mEq/L (09/03/16 8:01 AM) AGAP [10.0-20.0 mEq/L] 141 mEq/L (09/09/16 11:08 AM) POC Sodium [135-145 mEq/L] 4.1 mEq/L (09/09/16 11:08 AM) POC Potassium [3.5-5.1 mEq/L] 99 mEq/L (09/09/16 11:08 AM) POC Chloride [95-109 mEq/L] CHEM PANEL 1 2 3 Most recent to oldest [Reference Range]: 0.90 mg/dL (09/11/16 12:40 PM) 0.90 mg/dL (09/10/16 4:24 AM) 0.60 mg/dL (09/03/16 8:01 AM) Creatinine Lvl [0.50-1.40 mg/dL] 64 mL/min/1.73m2 1 *NA* (09/11/16 12:40 PM) 64 mL/min/1.73m2 2 *NA* (09/10/16 4:24 AM) 91 mL/min/1.73m2 3 *NA* (09/03/16 8:01 AM) eGFR 23 mg/dL *HI* (09/11/16 12:40 PM) 20 mg/dL (09/10/16 4:24 AM) 21 mg/dL (09/03/16 8:01 AM) BUN [7-22 mg/dL] 26 *HI* (09/11/16 12:40 PM) 35 *HI* (09/03/16 8:01 AM) B/C Ratio [6-25] 71 mg/dL (09/11/16 12:40 PM) 37 mg/dL 4 *CRIT* (09/11/16 5:30 AM) 39 mg/dL 5 *CRIT* (09/10/16 4:24 AM) Glucose Lvl [70-99 mg/dL] 16 mg/dL (09/09/16 11:08 AM) POC BUN [7-22 mg/dL] 148 mg/dL *HI* (09/09/16 11:08 AM) POC Glucose [70-99 mg/dL] 6.1 g/dL *LOW* (09/11/16 12:40 PM) 6.2 g/dL *LOW* (09/11/16 12:40 PM) 7.2 g/dL (09/03/16 8:01 AM) Total Protein [6.4-8.4 g/dL] 2.9 g/dL *LOW* (09/11/16 12:40 PM) 3.1 g/dL *LOW* (09/11/16 12:40 PM) 3.5 g/dL (09/03/16 8:01 AM) Albumin Lvl [3.5-5.0 g/dL] 3.2 g/dL (09/11/16 12:40 PM) 3.1 g/dL (09/11/16 12:40 PM) 3.7 g/dL (09/03/16 8:01 AM) Globulin [2.7-4.2 g/dL] 0.9 (09/11/16 12:40 PM) 1.0 (09/11/16 12:40 PM) 0.9 (09/03/16 8:01 AM) A/G Ratio [0.7-1.6] 8.0 mg/dL *LOW* (09/11/16 12:40 PM) 8.0 mg/dL *LOW* (09/10/16 4:24 AM) 8.3 mg/dL *LOW* (09/03/16 8:01 AM) Calcium Lvl [8.5-10.5 mg/dL] 22 unit/L (09/11/16 12:40 PM) 22 unit/L (09/11/16 12:40 PM) 15 unit/L (09/03/16 8:01 AM) ALT [0-65 unit/L] 23 unit/L (09/11/16 12:40 PM) 27 unit/L (09/11/16 12:40 PM) 13 unit/L (09/03/16 8:01 AM) AST [0-37 unit/L] 93 unit/L (09/11/16 12:40 PM) 95 unit/L (09/11/16 12:40 PM) 104 unit/L (09/03/16 8:01 AM) Alk Phos [39-136 unit/L] 0.5 mg/dL (09/11/16 12:40 PM) 0.5 mg/dL (09/11/16 12:40 PM) 0.3 mg/dL (09/03/16 8:01 AM) Bili Total [0.2-1.3 mg/dL] 0.2 mg/dL (09/11/16 12:40 PM) Bili Direct [0.0-0.3 mg/dL] 0.3 mg/dL (09/11/16 12:40 PM) Bili Indirect [0.0-1.0 mg/dL] 1Result Comment: The eGFR is calculated using [...] be mul tiplied by the estimated BMI. 2Result Comment: The eGFR is calculated using the [...] be mul tiplied by the estimated BMI. 3Result Comment: The eGFR is calculated using the [...] be mul tiplied by the estimated BMI. 4Result Comment: Critical Result(s) called to Lito Carr at 09/11/2016 06:53 by AP. Read back OK. 5Result Comment: Critical Result(s) called to Lito Carr at 09/10/2016 09:00 by AP. Read back OK. SPECIAL CHEMISTRY 1 2 3 Most recent to oldest [Reference Range]: 8.0 % *HI* (09/11/16 12:40 PM) 8.1 % *HI* (09/03/16 8:01 AM) Hgb A1C [<=5.6 %] ENDOCRINOLOGY 1 2 3 Most recent to oldest [Reference Range]: 78.6 uIU/mL *NA* (09/11/16 12:40 PM) Insulin Lvl URINE AND STOOL 1 2 3 Most recent to oldest [Reference Range]: Slight *ABN* (09/03/16 8:01 AM) UA Turbidity [Clear] Yellow *NA* (09/03/16 8:01 AM) UA Color [Yellow] 7.0 (09/03/16 8:01 AM) UA pH [5.0-8.0] 1.025 (09/03/16 8:01 AM) UA Spec Grav [<=1.030] Negative mg/dL *NA* (09/03/16 8:01 AM) UA Glucose [Negative mg/dL] Negative (09/03/16 8:01 AM) UA Blood [Negative] Negative mg/dL *NA* (09/03/16 8:01 AM) UA Ketones [Negative mg/dL] Negative mg/dL (09/03/16 8:01 AM) UA Protein [Negative mg/dL] 4.0 mg/dL *HI* (09/03/16 8:01 AM) UA Urobilinogen [0.1-1.0 mg/dL] Negative *NA* (09/03/16 8:01 AM) UA Bili [Negative] Large *ABN* (09/03/16 8:01 AM) UA Leuk Est [Negative] Negative (09/03/16 8:01 AM) UA Nitrite [Negative] 91 /HPF *HI* (09/03/16 8:01 AM) UA WBC [0-5 /HPF] Occasional /HPF *NA* (09/03/16 8:01 AM) UA Bacteria [None Seen /HPF] Occasional /LPF *NA* (09/03/16 8:01 AM) UA Sq Epi [Few /LPF] Few /LPF *NA* (09/03/16 8:01 AM) UA Mucus [None Seen /LPF] HEMATOLOGY 1 2 3 Most recent to oldest [Reference Range]: 12.5 K/CMM *HI* (09/11/16 12:40 PM) 7.4 K/CMM (09/03/16 8:01 AM) WBC [3.7-10.4 K/CMM] 3.24 M/CMM *LOW* (09/11/16 12:40 PM) 4.04 M/CMM *LOW* (09/03/16 8:01 AM) RBC [4.20-5.40 M/CMM] 10.3 g/dL *LOW* (09/11/16 12:40 PM) 9.9 g/dL *LOW* (09/11/16 4:43 AM) 10.9 g/dL *LOW* (09/10/16 4:24 AM) Hgb [12.0-16.0 g/dL] 31.4 % *LOW* (09/11/16 12:40 PM) 29.7 % *LOW* (09/11/16 4:43 AM) 31.3 % *LOW* (09/10/16 4:24 AM) Hct [36.0-48.0 %] 97.0 fL (09/11/16 12:40 PM) 96.6 fL (09/03/16 8:01 AM) MCV [80.0-98.0 fL] 31.9 pg *HI* (09/11/16 12:40 PM) 32.6 pg *HI* (09/03/16 8:01 AM) MCH [27.0-31.0 pg] 32.8 g/dL (09/11/16 12:40 PM) 33.7 g/dL (09/03/16 8:01 AM) MCHC [32.0-36.0 g/dL] 12.4 % (09/11/16 12:40 PM) 12.7 % (09/03/16 8:01 AM) RDW [11.5-14.5 %] 160 K/CMM (09/11/16 12:40 PM) 155 K/CMM (09/11/16 4:43 AM) 258 K/CMM (09/03/16 8:01 AM) Platelet [133-450 K/CMM] 8.1 fL (09/11/16 12:40 PM) 8.0 fL (09/03/16 8:01 AM) MPV [7.4-10.4 fL] 12.9 g/dL (09/09/16 11:08 AM) POC Hemoglobin [12.0-16.0 g/dL] 38.0 % (09/09/16 11:08 AM) POC Hematocrit [36.0-48.0 %] 83.5 % *HI* (09/11/16 12:40 PM) 74.9 % (09/03/16 8:01 AM) Segs [45.0-75.0 %] 8.8 % *LOW* (09/11/16 12:40 PM) 15.3 % *LOW* (09/03/16 8:01 AM) Lymphocytes [20.0-40.0 %] 6.8 % (09/11/16 12:40 PM) 6.9 % (09/03/16 8:01 AM) Monocytes [2.0-12.0 %] 0.8 % (09/11/16 12:40 PM) 2.2 % (09/03/16 8:01 AM) Eosinophils [0.0-4.0 %] 0.1 % (09/11/16 12:40 PM) 0.7 % (09/03/16 8:01 AM) Basophils [0.0-1.0 %] 10.5 K/CMM *HI* (09/11/16 12:40 PM) 5.5 K/CMM (09/03/16 8:01 AM) Segs-Bands # [1.5-8.1 K/CMM] 1.1 K/CMM (09/11/16 12:40 PM) 1.1 K/CMM (09/03/16 8:01 AM) Lymphocytes # [1.0-5.5 K/CMM] 0.9 K/CMM *HI* (09/11/16 12:40 PM) 0.5 K/CMM (09/03/16 8:01 AM) Monocytes # [0.0-0.8 K/CMM] 0.1 K/CMM (09/11/16 12:40 PM) 0.2 K/CMM (09/03/16 8:01 AM) Eosinophils # [0.0-0.5 K/CMM] 0.0 K/CMM (09/11/16 12:40 PM) 0.1 K/CMM (09/03/16 8:01 AM) Basophils # [0.0-0.2 K/CMM] 13.7 seconds (09/03/16 8:01 AM) PT [12.0-14.7 seconds] 1.03 (09/03/16 8:01 AM) INR [0.85-1.17] 27.4 seconds (09/03/16 8:01 AM) PTT [22.9-35.8 seconds] Immunizations No data available for this section [...] 1no comments 2none 3house Assessment and Plan Extracted from: Title: Progress Note * 3 Author: Popeye Del Rosario Date: 09/12/16 Impression and Plan SP TKR D/C to home if ok with medicine team, F/U Dr Mcintyre next week. Extracted from: Title: Discharge Summary * TKR Author: Popeye Del Rosario Date: 09/11/16 Discharge Information See D/C orders Discharge Plan Activities as tolerated. Wt Bearing as tolerated. Use walker if needed. Start OP therapy next Thursday. F/U Dr Mcintyre next week, call office for appt. Extracted from: Title: H&P Shilpi Author: Popeye Del Rosario Date: 09/04/16 Impression and Plan Diagnosis Closed fracture of right tibial plateau ([id number] S82.141A, Working, Medical). Tatum I diagnosis DJD (degenerative joint disease) of knee (Working, Medical). Plan: Right total knee replacement. The risks and benifits of surgery were discussed and both she and Dr Mcintyre agree to proceed with the knee replacement.
[2018-09-11 03:39] LABS: STREPTOCOCCUS GRP A ANTIGEN NEGATIVE (NEGATIVE)
[2018-09-11 03:41] LABS: INFLUENZAE A&B ANTIGEN (RAPID) POSITIVE FLU B (NEGATIVE)
[2018-09-11] MEDS ORDERED: TRAMADOL HCL 50 MG TAB PO ONE (04:45)
--- NOTE | 2018-09-11 05:44 | Diagnostic Imaging Report ---
EXAMINATION: CHEST 2 VIEWS INDICATION: ^COUGH COMPARISON: None FINDINGS: PA and lateral views TUBES and LINES: None. LUNGS: Lungs are moderately inflated. There are bibasilar atelectasis. Likely left lung base airspace opacity. PLEURA: No pleural effusion or pneumothorax. HEART AND MEDIASTINUM: The cardiomediastinal silhouette is unremarkable. BONES AND SOFT TISSUES: No acute osseous lesion. Soft tissues are unremarkable. UPPER ABDOMEN: No free air under the diaphragm. IMPRESSION: Likely left lower lobe and possibly lingular pneumonia. Signed by: Dr. Dejuan Zhu M.D. on 09/11/2018 5:41 AM
[2018-09-11] MEDS ORDERED: DEXTROSE 50% SYRINGE 50 ML IV PRN (06:15)
[2018-09-11] MEDS: CEFTRIAXONE SOD 1 GM/NS 50 ML 50 ML IV SCH ×2 (06:30→17:03)
[2018-09-11] MEDS: OSELTAMIVIR PHOSPHATE 75 MG CAP PO SCH ×3 (06:30→17:03)
[2018-09-11 06:48] LABS: BASOPHILS % 0.2 % (0.0-1.0); EOSINOPHILS % 0.1 % (0.0-6.0); HEMATOCRIT 38.5 % (34.2-44.1); HEMOGLOBIN 12.5 g/dL (12.0-16.0); LYMPHOCYTES # (AUTO) 0.6 (1.0-3.2); LYMPHOCYTES % 7.1 % (18.0-39.1); MEAN CORPUSCULAR HEMOGLOBIN 33.3 pg (28-32); MEAN CORPUSCULAR HGB CONC 32.5 g/dL (31-35); MEAN CORPUSCULAR VOLUME 102.7 fL (81-99); MONOCYTES % 10.6 % (4.4-11.3); NEUTROPHILS # (AUTO) 7.3 (2.1-6.9); NEUTROPHILS % 81.3 % (38.7-80.0); PLATELET COUNT 189 x10e3/uL (140-360); RED BLOOD COUNT 3.75 x10e6/uL (3.6-5.1); RED CELL DISTRIBUTION WIDTH 12.6 % (11.7-14.4)
[2018-09-11 06:50] LABS: CLARITY,URINE HAZY (CLEAR); COLOR,URINE YELLOW (YELLOW); KETONES,URINE 2+ (NEGATIVE); LEUKOCYTE ESTERASE ,URINE NEGATIVE (NEGATIVE); NITRITE,URINE NEGATIVE (NEGATIVE); PROTEIN,URINE DIPSTICK TRACE (NEGATIVE); URINE UROBILINOGEN 1 mg/dL (0.2 - 1)
[2018-09-11 06:51] LABS: BILIRUBIN,URINE NEGATIVE (NEGATIVE)
[2018-09-11 06:52] LABS: INR 0.92; PARTIAL THROMBOPLASTIN TIME 30.1 seconds (23.8-35.5); PROTHROMBIN TIME 12.8 seconds (11.9-14.5)
[2018-09-11 06:53] LABS: AMORPHOUS SEDIMENT,URINE FEW (FEW); BACTERIA,URINE FEW /HPF; EPITHELIAL CELLS,URINE FEW /LPF
[2018-09-11 07:00] LABS: ALANINE AMINOTRANSFERASE 8 IU/L (0-55); ALBUMIN 3.3 g/dL (3.5-5.0); ALBUMIN/GLOBULIN RATIO 0.9 (0.8-2.0); ALKALINE PHOSPHATASE 112 IU/L (40-150); ANION GAP 11.9 mmol/L (8-16); BLOOD UREA NITROGEN 14 mg/dL (7-26); BUN/CREATININE RATIO 18 (6-25); CALCIUM 9.1 mg/dL (8.4-10.2); CARBON DIOXIDE 30 mmol/L (22-29); CHLORIDE 97 mmol/L (98-107); CREATINE KINASE 71 IU/L (29-168); CREATININE, SERUM 0.77 mg/dL (0.57-1.11); EST GLOMERULAR FILTRATION RATE > 60 ML/MIN (60-); GLUCOSE 191 mg/dL (74-118); MAGNESIUM 1.7 MG/DL (1.3-2.1); POTASSIUM 3.9 mmol/L (3.5-5.1); SODIUM 135 mmol/L (136-145)
--- NOTE | 2018-09-11 07:06 | NUR ---
REPORT GIVEN TO VIJAY Mcknight RN. Addendum: 09/11/18 at 0707 by JANE REPORT GIVEN TO VIJAY Garcia RN DAY SHIFT NURSE.
[2018-09-11 07:07] LABS: CREATINE KINASE MB 0.4 ng/mL (0-5.0)
[2018-09-11 07:11] LABS: B-TYPE NATRIURETIC PEPTIDE2 43.7 pg/mL (0-100)
[2018-09-11] MEDS: AZITHROMYCIN 500MG/NS 250 ML 250 ML IV SCH ×2 (08:03→09:00)
[2018-09-11] MEDS: INSULIN LISPRO 100 UNIT/1 ML 3ML VIAL SQ SCH ×4 (08:13→20:41)
--- NOTE | 2018-09-11 08:30 | NUR ---
pt arrived to unit via w/c resp even and unlabored at this time no distress noted, pt put on isolation for positive flu, pt able to make needs known pt orient to room and call light, call light in reach.
[2018-09-11 08:39] VITALS: BP 141/80
[2018-09-11 11:48] VITALS: BP 122/65
[2018-09-11] MEDS ORDERED: CEPACOL SORE THROAT LOZENGES PO PRN (13:45)
[2018-09-11 16:03] VITALS: BP 118/72
[2018-09-11] MEDS ORDERED: SODIUM CHLORIDE 0.9% 250ML 250 ML ONE (16:29)
[2018-09-11] MEDS: IPRATROPIUM BROMIDE 0.02% 2.5 ML NEB NEB PRN (19:11)
[2018-09-11] MEDS: ALBUTEROL SULF 0.083% NEB SOLN 3 ML NEB NEB PRN (19:11)
--- NOTE | 2018-09-11 19:49 | NUR ---
report given to oncoming nurse, for continued care.
[2018-09-11 20:00] VITALS: BP 124/64
[2018-09-11 20:17] LABS: CREATINE KINASE MB 0.6 ng/mL (0-5.0)
[2018-09-11] MEDS ORDERED: HYDRALAZINE HCL 20 MG/ML VIAL IV PRN (20:30)
[2018-09-11] MEDS ORDERED: ONDANSETRON HCL INJ 2MG/ML 2ML 2 MG/ML VIAL IV PRN (20:30)
[2018-09-11] MEDS ORDERED: ACETAMINOPHEN/CODEINE 300MG - 30MG TAB PO PRN (20:30)
[2018-09-11] MEDS ORDERED: ACETAMINOPHEN 325 MG TAB PO PRN (20:30)
[2018-09-11 22:18] VITALS: BP 124/64
[2018-09-11 22:37] VITALS: BP 124/64
[2018-09-12] VITALS (8 sets, daily range): BP systolic 116–139; BP diastolic 53–69
[2018-09-12 05:18] LABS: BASOPHILS % 0.3 % (0.0-1.0); EOSINOPHILS % 0.7 % (0.0-6.0); HEMATOCRIT 38.9 % (34.2-44.1); HEMOGLOBIN 12.5 g/dL (12.0-16.0); LYMPHOCYTES # (AUTO) 1.4 (1.0-3.2); LYMPHOCYTES % 23.8 % (18.0-39.1); MEAN CORPUSCULAR HGB CONC 32.1 g/dL (31-35); MEAN CORPUSCULAR VOLUME 102.6 fL (81-99); MONOCYTES # (AUTO) 0.9 (0.2-0.8); MONOCYTES % 15.7 % (4.4-11.3); NEUTROPHILS # (AUTO) 3.4 (2.1-6.9); PLATELET COUNT 186 x10e3/uL (140-360); RED BLOOD COUNT 3.79 x10e6/uL (3.6-5.1); RED CELL DISTRIBUTION WIDTH 12.8 % (11.7-14.4)
[2018-09-12] MEDS: CEFTRIAXONE SOD 1 GM/NS 50 ML 50 ML IV SCH ×2 (05:28→18:00)
[2018-09-12 05:37] LABS: ALANINE AMINOTRANSFERASE 10 IU/L (0-55); ALBUMIN 2.9 g/dL (3.5-5.0); ALBUMIN/GLOBULIN RATIO 0.8 (0.8-2.0); ALKALINE PHOSPHATASE 94 IU/L (40-150); ANION GAP 11.9 mmol/L (8-16); BLOOD UREA NITROGEN 16 mg/dL (7-26); BUN/CREATININE RATIO 21 (6-25); CALCIUM 8.6 mg/dL (8.4-10.2); CARBON DIOXIDE 27 mmol/L (22-29); CHLORIDE 99 mmol/L (98-107); CREATININE, SERUM 0.77 mg/dL (0.57-1.11); EST GLOMERULAR FILTRATION RATE > 60 ML/MIN (60-); GLUCOSE 115 mg/dL (74-118); POTASSIUM 3.9 mmol/L (3.5-5.1); SODIUM 134 mmol/L (136-145)
[2018-09-12] MEDS: INSULIN LISPRO 100 UNIT/1 ML 3ML VIAL SQ SCH ×4 (07:30→21:14)
[2018-09-12] MEDS: OSELTAMIVIR PHOSPHATE 75 MG CAP PO SCH ×2 (08:10→17:00)
[2018-09-12] MEDS: AZITHROMYCIN 500MG/NS 250 ML 250 ML IV SCH (08:10)
[2018-09-12] MEDS: IPRATROPIUM BROMIDE 0.02% 2.5 ML NEB NEB PRN (19:00)
[2018-09-12] MEDS: ALBUTEROL SULF 0.083% NEB SOLN 3 ML NEB NEB PRN (19:00)
--- NOTE | 2018-09-12 19:34 | NUR ---
Report given to oncoming nurse. for continued care.
[2018-09-12] MEDS ORDERED: GUAIFENESIN/CODEINE 10 ML CUP PO PRN (19:45)
[2018-09-13] VITALS (7 sets, daily range): BP systolic 123–138; BP diastolic 56–76
[2018-09-13 05:57] LABS: BASOPHILS % 0.3 % (0.0-1.0); EOSINOPHILS # (AUTO) 0.1 (0.0-0.4); EOSINOPHILS % 1.5 % (0.0-6.0); HEMATOCRIT 36.5 % (34.2-44.1); HEMOGLOBIN 11.5 g/dL (12.0-16.0); LYMPHOCYTES % 24.1 % (18.0-39.1); MEAN CORPUSCULAR HEMOGLOBIN 32.9 pg (28-32); MEAN CORPUSCULAR HGB CONC 31.5 g/dL (31-35); MEAN CORPUSCULAR VOLUME 104.3 fL (81-99); MONOCYTES # (AUTO) 0.6 (0.2-0.8); MONOCYTES % 14.4 % (4.4-11.3); NEUTROPHILS # (AUTO) 2.4 (2.1-6.9); NEUTROPHILS % 59.4 % (38.7-80.0); PLATELET COUNT 171 x10e3/uL (140-360)
[2018-09-13 06:16] LABS: ANION GAP 10.3 mmol/L (8-16); BLOOD UREA NITROGEN 14 mg/dL (7-26); BUN/CREATININE RATIO 19 (6-25); CALCIUM 8.4 mg/dL (8.4-10.2); CARBON DIOXIDE 30 mmol/L (22-29); CHLORIDE 100 mmol/L (98-107); CREATININE, SERUM 0.75 mg/dL (0.57-1.11); EST GLOMERULAR FILTRATION RATE > 60 ML/MIN (60-); GLUCOSE 117 mg/dL (74-118); POTASSIUM 4.3 mmol/L (3.5-5.1); SODIUM 136 mmol/L (136-145)
[2018-09-13] MEDS: CEFTRIAXONE SOD 1 GM/NS 50 ML 50 ML IV SCH ×2 (06:25→18:00)
--- NOTE | 2018-09-13 06:47 | Diagnostic Imaging Report ---
EXAMINATION: CHEST SINGLE (PORTABLE) INDICATION: ^SOB, flu, cough COMPARISON: Chest x-ray 09/11/2018. FINDINGS: AP view TUBES and LINES: None. LUNGS: Lungs are not well inflated. There are bibasilar atelectasis. Left basilar airspace opacities obscured by atelectasis. PLEURA: No pleural effusion or pneumothorax. HEART AND MEDIASTINUM: The cardiomediastinal silhouette is unremarkable. Tortuous aorta. BONES AND SOFT TISSUES: Right humeral arthroplasty. No acute osseous lesion. Soft tissues are unremarkable. UPPER ABDOMEN: No free air under the diaphragm. IMPRESSION: Hypoinflated lungs with increasing atelectasis. Previous left lung base possible pneumonia is obscured. Signed by: Dr. Dejuan Zhu M.D. on 09/13/2018 6:43 AM
--- NOTE | 2018-09-13 07:05 | NUR ---
RCD PT AT BED PT IS ALERT AND ORIENTED PT RESTING ON BED NO SIGNS OF ANY DISTRESS NOTED FAMILY AT BED SIDE BED LOW AND LOCKED CALL LIGHT IN REACH
[2018-09-13] MEDS: INSULIN LISPRO 100 UNIT/1 ML 3ML VIAL SQ SCH ×4 (07:30→20:39)
[2018-09-13] MEDS: OSELTAMIVIR PHOSPHATE 75 MG CAP PO SCH ×2 (09:00→16:43)
[2018-09-13] MEDS: AZITHROMYCIN 500MG/NS 250 ML 250 ML IV SCH (09:00)
[2018-09-13] MEDS ORDERED: SODIUM CHLORIDE 0.9% 250ML 250 ML ONE (09:13)
[2018-09-13] MEDS ORDERED: ONDANSETRON HCL 4 MG ORAL DISINTEGRATING TAB PO PRN (12:00)
--- NOTE | 2018-09-13 18:51 | NUR ---
PT RESTING ON BED BED SIDE REPORT GIVEN TO ONCOMING NURSE
[2018-09-13] MEDS: IPRATROPIUM BROMIDE 0.02% 2.5 ML NEB NEB PRN (20:09)
[2018-09-13] MEDS: ALBUTEROL SULF 0.083% NEB SOLN 3 ML NEB NEB PRN (20:09)
[2018-09-14] VITALS: BP 149/65
[2018-09-14 04:00] VITALS: BP 130/63
[2018-09-14] MEDS: CEFTRIAXONE SOD 1 GM/NS 50 ML 50 ML IV SCH ×2 (05:25→17:38)
--- NOTE | 2018-09-14 07:00 | NUR ---
RCD PT AT BED PT IS ALERT AND ORIENTED PT RESTING ON BED NO SIGNS OF ANY DISTRESS NOTED GETTING O2 2L BY NC FAMILY AT BED SIDE BED LOW AND LOCKED CALL LIGHT IN REACH
[2018-09-14] MEDS: INSULIN LISPRO 100 UNIT/1 ML 3ML VIAL SQ SCH ×3 (07:30→16:21)
[2018-09-14] MEDS: FAMOTIDINE 20 MG TAB PO SCH ×2 (07:30→16:20)
[2018-09-14 08:12] VITALS: BP 130/63
[2018-09-14 08:30] VITALS: BP 150/64
[2018-09-14] MEDS: OSELTAMIVIR PHOSPHATE 75 MG CAP PO SCH ×2 (09:00→16:20)
[2018-09-14] MEDS: AZITHROMYCIN 500MG/NS 250 ML 250 ML IV SCH (09:00)
[2018-09-14 12:30] VITALS: BP 142/71
--- NOTE | 2018-09-14 15:37 | NUR ---
CASE MANAGEMENT ASSESSMENT Progress Worker to bedside to discuss plan of care with patient/family. CM/SW role and care transitions discussed. Anticipated discharge plan discussed along with duration of care. CM/SW discussed patients right to make decisions in care. CM/SW work hours given. Patient lives: with Admit/Transfer: thru ED Hospital/ER visits since last admit: 0; 1st time in hospital in 3 years POA/Emergency contact: daughter Ese Meza [phone] Current/Previous Home Health: previously had home health with [facility]; none currently PCP/Follow-up Care: Dr. Lio Suh - PCP; advised pt to follow up with her MD within 5-7 days of discharge. Pt acknowledged Current/Previous DME: rollator, shower chair Medications (referring to index hospitalization or the first time you were in the hospital) a. Were changes made in your medications when you were in the hospital on [date of index hospitalization]? n/a b. Did you understand the changes? n/a c. Were you able to obtain your new medications right away? n/a d. Were you able to take your medications like the doctor wanted you to? n/a e. Did the hospital give you an accurate, easy to understand list of medications when you left? n/a Scale of 1-10 how comfortable does patient feel with disease management in outpatient settin Other Services: none Employment Status: retired Areas of Concerns: flu +, pneumonia Referral Needs: none Education Needs: medical management IMM/RICHARDS given and signed (if applicable): IMM delivered and explained to pt. She verbalized understanding. Signed copy placed in chart. Copy to pt. Goal for discharge: home CM/SW left business card at the bedside with contact information. Name and number was also written on the patients whiteboard. Patient verbalized understanding of discussion. CM will follow-up with ongoing discharge and transition of care needs.
[2018-09-14 16:34] VITALS: BP 155/78
--- NOTE | 2018-09-14 16:52 | NUR ---
RECHECKED BLOOD SUGAR 127 MG/DL
[2018-09-14] MEDS ORDERED: CEFUROXIME250 MG PO (16:55)
[2018-09-14] MEDS ORDERED: ZITHROMAX500 MG PO (16:55)
[2018-09-14] MEDS ORDERED: TAMIFLU75 MG PO (16:57)
[2018-09-14] MEDS ORDERED: PROAIR HFA INH8.5 GM INH (17:03)
--- NOTE | 2018-09-14 18:28 | NUR ---
PT WENT HOME IN SAFE CONDITION WITH HER
--- NOTE | 2018-09-15 00:11 | Discharge Summary ---
PERTINENT HISTORY AND PHYSICAL FINDINGS: Ms. Rodriguez is a [id number] with a past medical history of diabetes and hypertension, who presented with 1 week of cough and sore throat. She also complained of muscle pain. She denied any nausea or vomiting at time of admission. ADMITTING DIAGNOSES: Her admitting diagnoses included: 1. Influenza A. 2. Pneumonia. 3. Type 2 diabetes mellitus. 4. Hypertension. DISCHARGE DIAGNOSES: Include: 1. Influenza A. 2. Pneumonia. 3. Type 2 diabetes mellitus. 4. Hypertension. 5. Ambulatory dysfunction. PERTINENT LABORATORY DATA: On admission, wbc's 9.0, hemoglobin 12.5, hematocrit 38.5, platelets 189. Sodium 135, potassium 3.9, chloride 97, CO2 of 30, BUN 14, creatinine 0.77, GFR greater than 60, glucose 191. Lactic acid 7.0. B-type natriuretic peptide 43.7. Calcium 9.1. Magnesium 1.7. LFTs were normal. Urinalysis did not show any nitrites or leukocyte esterases, was negative for UTI. Positive for influenza group A. Strep screen was negative. Throat culture, two blood cultures and urine culture collected on August on were all negative. Chest x-ray obtained on September 13 showed hyperinflated lungs with increasing atelectasis, previous left lung base possible pneumonia. Obscured chest x-ray on the had shown likely left lower lobe and possible lingular pneumonia. There were no consults for this admission. During her stay, the patient received DuoNeb's, Rocephin, Zithromax, and Tamiflu. We will discharge her on ProAir HFA inhaler 90 mcg inhalation b.i.d. p.r.n. for shortness of breath, Zithromax 500 mg p.o. daily for the pneumonia for 5 days, cefuroxime 500 mg p.o. b.i.d. for 7 days, and Tamiflu 75 mg p.o. b.i.d. for 5 days. Continue with ADA diet. Activity level as tolerated. The patient is able to ambulate with a rolling walker. Followup with PCP in 1 to 2 weeks. The patient's current PCP is Lio Suh, however, she did have an interest in switching primary care physician to Dr. Roblero and Dr. Roblero's contact information has been provided. The patient is no longer requiring oxygen. Physical examination is improved today, mild expiratory similar wheezing. Dictated by Jacek Martínez, BRIJESH MD GEE Mchugh/MODL /[id number]
== END 2018-09-14 18:29 | disposition home or self-care (01) | DRG 195 ==
LOC: ER 02:47 → ERHOLD 06:14 → MED/SURG2 08:35
PROVIDERS: ADMIT Internal Medicine; ATTEND Internal Medicine
DX: J11.08 Influenza due to unidentified influenza virus with specified pneumonia (principal); J16.8 Pneumonia due to other specified infectious organisms; E11.9 Type 2 diabetes mellitus without complications; I10 Essential (primary) hypertension; R26.9 Unspecified abnormalities of gait and mobility; Z79.899 Other long term (current) drug therapy; Z79.4 Long term (current) use of insulin
CPT/HCPCS: 36415; 71045; 71046; 80048; 80053; 81001; 82550; 82553; 82948; 83518; 83605; 83735; 83880; 84484; 85025; 85610; 85730; 87040; 87070; 87086; 87400; 96372; 99284; J0456; J0696; J7050

== ENCOUNTER 2024-03-24 10:15 | Emergency (ER) | payer MEDICARE ==
[~2024-03-24] VITALS: Ht 157.5 cm; Wt 78.9 kg
[~2024-03-24 10:15] MED LIST: ASPIRIN81 MG PO; CEFUROXIME250 MG PO; CRESTOR10 MG PO; DOXAZOSIN MESYLA2 MG PO; FARXIGA10 MG PO; HYDROXYZINE HCL25 MG PO; LOSARTAN POTASS25 MG PO; METFORMIN HCL500 MG PO; MYSOLINE50 MG PO; NEURONTIN300 MG PO; PROAIR HFA INH8.5 GM INH; TAMIFLU75 MG PO; TRAZODONE HCL100 MG PO; ZITHROMAX500 MG PO
[2024-03-24 10:45] VITALS: TEMP 97.9
[2024-03-24] MEDS ORDERED: SODIUM CHLORIDE FLUSH 10 ML SYR IV PRN (11:15)
[2024-03-24 11:50] VITALS: PULSE 71; RESP 16; O2SAT 99
[2024-03-24 12:11] LABS: BASOPHILS % 0.1 % (0.0-1.0); EOSINOPHILS % 0.6 % (0.0-6.0); HEMATOCRIT 41.2 % (34.2-44.1); HEMOGLOBIN 12.9 g/dL (12.0-16.0); LYMPHOCYTES # (AUTO) 0.8 (1.0-3.2); LYMPHOCYTES % 11.3 % (18.0-39.1); MEAN CORPUSCULAR HEMOGLOBIN 34.6 pg (28-32); MEAN CORPUSCULAR HGB CONC 31.3 g/dL (31-35); MEAN CORPUSCULAR VOLUME 110.5 fL (81-99); MONOCYTES # (AUTO) 0.4 (0.2-0.8); MONOCYTES % 5.8 % (4.4-11.3); NEUTROPHILS # (AUTO) 5.6 (2.1-6.9); NEUTROPHILS % 81.9 % (38.7-80.0); PLATELET COUNT 200 x10e3/uL (140-360); RED BLOOD COUNT 3.73 x10e6/uL (3.6-5.1); RED CELL DISTRIBUTION WIDTH 12.1 % (11.7-14.4); WHITE BLOOD COUNT 6.84 x10e3/uL (4.8-10.8)
[2024-03-24] MEDS: SODIUM CHLORIDE 0.9% 500ML 500 ML IV ONE (12:30)
[2024-03-24 12:31] LABS: ALBUMIN 3.8 g/dL (3.5-5.0); ALBUMIN/GLOBULIN RATIO 1.2 (0.8-2.0); ANION GAP 16.5 mmol/L (8-16); BILIRUBIN,TOTAL 0.5 mg/dL (0.2-1.2); CALCIUM 9.2 mg/dL (8.4-10.2); CREATININE, SERUM 0.86 mg/dL (0.57-1.11); POTASSIUM 4.5 mmol/L (3.5-5.1); TOTAL PROTEIN 7.1 g/dL (6.5-8.1)
[2024-03-24 12:36] LABS: TROPONIN I 0.031 ng/mL (0-0.300)
== END 2024-03-24 14:04 | disposition home or self-care (01) ==
LOC: ER 10:58
DX: R42 Dizziness and giddiness (principal); W01.0XXA Fall on same level from slipping, tripping and stumbling without subsequent striking against object, initial encounter; Y93.01 Activity, walking, marching and hiking; Y92.89 Other specified places as the place of occurrence of the external cause; I10 Essential (primary) hypertension; E11.65 Type 2 diabetes mellitus with hyperglycemia; E78.5 Hyperlipidemia, unspecified; M54.9 Dorsalgia, unspecified; G89.29 Other chronic pain; Z85.3 Personal history of malignant neoplasm of breast; Z86.73 Personal history of transient ischemic attack (TIA), and cerebral infarction without residual deficits
CPT/HCPCS: 36415; 70450; 71045; 72125; 73502; 80053; 84484; 85025; 93005; 99284; J7040

== ENCOUNTER → 2024-08-11 | Day surgery (SDC) | payer MEDICARE ==
[2024-08-08 09:00] LABS: BASOPHILS % 0.5 % (0.0-1.0); EOSINOPHILS # (AUTO) 0.1 (0.0-0.4); EOSINOPHILS % 3.2 % (0.0-6.0); HEMATOCRIT 37.7 % (34.2-44.1); LYMPHOCYTES # (AUTO) 1.1 (1.0-3.2); LYMPHOCYTES % 25.1 % (18.0-39.1); MEAN CORPUSCULAR HEMOGLOBIN 32.2 pg (28-32); MEAN CORPUSCULAR HGB CONC 31.8 g/dL (31-35); MEAN CORPUSCULAR VOLUME 101.1 fL (81-99); MONOCYTES # (AUTO) 0.6 (0.2-0.8); MONOCYTES % 13.1 % (4.4-11.3); NEUTROPHILS # (AUTO) 2.5 (2.1-6.9); NEUTROPHILS % 57.9 % (38.7-80.0); PLATELET COUNT 181 x10e3/uL (140-360); RED BLOOD COUNT 3.73 x10e6/uL (3.6-5.1); RED CELL DISTRIBUTION WIDTH 12.6 % (11.7-14.4); WHITE BLOOD COUNT 4.34 x10e3/uL (4.8-10.8)
[2024-08-08 09:26] LABS: ANION GAP 11.3 mmol/L (8-16); CALCIUM 8.8 mg/dL (8.4-10.2); CREATININE, SERUM 0.85 mg/dL (0.57-1.11); POTASSIUM 4.3 mmol/L (3.5-5.1)
[~2024-08-11] MED LIST changes: +FENTANYL CITRATE/PF 100MCG/2 ML INJ ONE; +MIDAZOLAM HCL 2 MG/2 ML VIAL ONE; +ONDANSETRON HCL INJ 2MG/ML 2ML 2 MG/ML VIAL ONE; +PIOGLITAZONE HC45 MG PO; +PROPRANOLOL HCL10 MG PO
[2024-08-11] MEDS: LACTATED RINGER'S 1,000 ML ONE (09:53)
[2024-08-11] MEDS: TETRACAINE HCL 0.5% OPTH SOLN 4 ML BTL ONE (09:54)
[2024-08-11] MEDS: PHENYLEPHRINE HCL 2 ML DROPS ONE (09:54)
[2024-08-11] MEDS: CYCLOPENTOLATE HCL 2% OPTH SOLN 2 ML BTL OP ONE (09:54)
[2024-08-11 12:40] VITALS: BP 177/93; PULSE 58; RESP 16; O2SAT 100
== END | disposition home or self-care (01) ==
LOC: OR 08:24
PROVIDERS: ATTEND Ophthalmology
DX: H25.11 Age-related nuclear cataract, right eye (principal); E11.9 Type 2 diabetes mellitus without complications; I10 Essential (primary) hypertension; F41.9 Anxiety disorder, unspecified; Z88.6 Allergy status to analgesic agent; Z91.012 Allergy to eggs; Z01.810 Encounter for preprocedural cardiovascular examination; Z01.812 Encounter for preprocedural laboratory examination; Z79.84 Long term (current) use of oral hypoglycemic drugs; Z79.899 Other long term (current) drug therapy; Z86.73 Personal history of transient ischemic attack (TIA), and cerebral infarction without residual deficits
CPT/HCPCS: 36415 ×2; 66984; 80048; 82948; 85025; 93005; J2250; J2405; J3010; J7121; V2632